=== PATIENT | female | born 1965 | race Hispanic/Latino ===

== ENCOUNTER 2017-07-01 12:50 | Inpatient (IN) | payer MEDICARE, OTHER ==
--- NOTE | 2017-07-01 13:18 | ED PDOC ---
Arrival/HPI - General Chief Complaint: Abnormal Skin Integrity Time Seen by Provider: 07/01/17 13:09 Historian: Patient - History of Present Illness Narrative History of Present Illness (Text): 07/01/17 13:18 A 52 year old female, whose past medical history includes diabetes, anxiety, morbid obesity, and cellulitis, presents to the emergency room complaining of cellulitis on the left leg. The patient states that she noticed it last night, but it worsened today. The patient states that a patch developed yesterday and she put Neosporin on it and took Benadryl because it was itchy. However, this morning she noticed it became worse which prompted her to come into the emergency room since she has had a history of cellulitis. The patient denies fevers, chills, headache, dizziness, sore throat, cough, chest pain, shortness of breath, dyspnea on exertion, abdominal pain, nausea, vomiting, diarrhea, neck /back pain, urinary/bowel changes or any other complaint. PMD: Dr. Austin Middleton Time/Duration: Other (Yesterday) Symptom Onset: Sudden Symptom Course: Unchanged Activities at Onset: Rest, Light Context: Home Past Medical History - Provider Review Nursing Documentation Reviewed: Yes - Infectious Disease Hx of Infectious Diseases: None - Tetanus Immunization Tetanus Immunization: Up to Date - Cardiac Hx Hypertension: Yes - Pulmonary Hx Asthma: Yes Hx Bronchitis: Yes Hx Emphysema: Yes - Endocrine/Metabolic Hx Diabetes Mellitus Type 2: Yes - Integumentary Other/Comment: Multiple cellulitis - Musculoskeletal/Rheumatological Hx Back Pain: Yes Hx Falls: Yes - Gastrointestinal Hx Gastrointestinal Disorders: (impaction, pyloric stenosis) Hx Gastroesophageal Reflux: Yes Hx Liver Failure: (fatty liver) Hx Pancreatitis: Yes - Genitourinary/Gynecological Hx Genitourinary Disorders: Yes (uterine mass) - Psychiatric Hx Anxiety: Yes Hx Substance Use: No - Surgical History Hx Appendectomy: Yes - Anesthesia Hx Anesthesia: Yes Hx Anesthesia Reactions: No Hx Malignant Hyperthermia: No - Suicidal Assessment Feels Threatened In Home Enviroment: No Family/Social History - Physician Review Nursing Documentation Reviewed: Yes Family/Social History: No Known Family HX Smoking Status: Never Smoked Hx Alcohol Use: No Hx Substance Use: No Hx Substance Use Treatment: No Allergies/Home Meds Allergies/Adverse Reactions: Allergies famotidine Allergy (Verified 07/01/17 15:43) ANAPHYLAXIS hydromorphone Allergy (Verified 07/01/17 15:43) ANAPHYLAXIS lidocaine Allergy (Verified 07/01/17 15:43) ANAPHYLAXIS omeprazole Allergy (Verified 07/01/17 15:43) ANAPHYLAXIS Sulfa (Sulfonamide Antibiotics) Allergy (Verified 07/01/17 15:43) RASH ketorolac tromethamine [From Toradol] Adverse Reaction (Verified 07/01/17 15:43) ANAPHYLAXIS morphine Adverse Reaction (Verified 07/01/17 15:43) ANAPHYLAXIS Home Medications: Home Meds Medication Instructions Recorded Confirmed Albuterol HFA [Ventolin HFA 90 2 puff IN TID PRN 01/13/17 07/01/17 mcg/actuation (8 g)] Ergocalciferol [Drisdol 50,000 1 cap PO MO 01/13/17 07/01/17 Intl Units Cap] Esomeprazole Magnesium [Nexium] 40 mg PO DAILY 01/13/17 07/01/17 Insulin Aspart, Recombinant 42 units SC TID 01/13/17 07/01/17 [Novolog] clonazePAM [Klonopin] 1 mg PO TID 01/13/17 07/01/17 diltiaZEM CD [Cardizem CD] 120 mg PO BID 01/13/17 07/01/17 Nystatin [Mycostatin Oint] 100,000 unit TP BID 01/14/17 07/01/17 Review of Systems - Physician Review All systems were reviewed & negative as marked: Yes - Review of Systems Constitutional: absent: Fevers, Night Sweats ENT: absent: Sore Throat Respiratory: absent: SOB, Cough Cardiovascular: absent: Chest Pain, AGARWAL Gastrointestinal: absent: Abdominal Pain, Diarrhea, Nausea, Vomiting Musculoskeletal: absent: Back Pain, Neck Pain Skin: Rash (Left Leg), Cellulitis (Left Leg) Neurological: absent: Headache, Dizziness Physical Exam Vital Signs Reviewed: Yes Vital Signs Temp Pulse Resp BP Pulse Ox 07/01/17 14:25 98.1 F 84 17 150/93 H 98 07/01/17 14:00 150/93 H 07/01/17 13:12 97.2 F L 102 H 18 97 Temperature: Hypothermic Blood Pressure: Normal Pulse: Tachycardic Respiratory Rate: Normal Appearance: Positive for: Well-Appearing, Non-Toxic, Comfortable Pain Distress: None Mental Status: Positive for: Alert and Oriented X 3 - Systems Exam Head: Present: Atraumatic, Normocephalic Pupils: Present: PERRL Extroacular Muscles: Present: EOMI Conjunctiva: Present: Normal Mouth: Present: Moist Mucous Membranes Neck: Present: Normal Range of Motion Respiratory/Chest: Present: Clear to Auscultation, Good Air Exchange. No: Respiratory Distress, Accessory Muscle Use Cardiovascular: Present: Regular Rate and Rhythm, Normal S1, S2. No: Murmurs Abdomen: No: Tenderness, Distention, Peritoneal Signs Back: Present: Normal Inspection Upper Extremity: Present: Normal Inspection. No: Cyanosis, Edema Lower Extremity: Present: Normal Inspection. No: Edema Neurological: Present: GCS=15, CN II-XII Intact, Speech Normal Skin: Present: Warm, Erythematous (left leg redness), Other (Non-blanching) Psychiatric: Present: Alert, Oriented x 3, Normal Insight, Normal Concentration Medical Decision Making ED Course and Treatment: 07/01/17 13:36 Impression: A 52 year old female presents to the emergency room complaining of an area of cellulitis to the left leg that developed yesterday. Plan: -- Blood Culture -- Labs -- Reassess and disposition Progress Notes: 07/01/17 15:12 On reevaluation of the leg, the redness already spread double the size since arrival. Patient states that last two times the same thing happened and she failed antibiotic treatment as an outpatient. She will need IV antibiotics and admission. Case discussed with Dr. Galindo, who is aware and agrees with plan. Suggests CT to rule out necrotizing fasciitis. Accepts pt into her service and she will f/u CT. 4:09pm - patient states she allergic to IV contrast. CT switched to non- contrast. Medicine resident aware and will f/u CT. - Lab Interpretations Lab Results: 07/01/17 14:20 07/01/17 14:20 Lab Results 07/01/17 14:24: POC Glucose (mg/dL) 207 H 07/01/17 14:20: Sodium 143, Chloride 104, Potassium 3.8, Carbon Dioxide 25, Anion Gap 17, BUN 15, Creatinine 0.6 L, Est GFR ( Amer) > 60, Est GFR ( Non-Af Amer) > 60, Random Glucose 205 H, Calcium 9.4, Phosphorus 3.8, Magnesium 1.9, Total Bilirubin 0.4, AST 28, ALT 36, Alkaline Phosphatase 62, Total Protein 7.5, Albumin 4.3, Globulin 3.1, Albumin/Globulin Ratio 1.4 07/01/17 14:20: pO2 45, VBG pH 7.36, VBG pCO2 48.0, VBG HCO3 27.1, VBG Total CO2 28.6 H, VBG O2 Sat (Calc) 87.2 H, VBG Base Excess 1.0, VBG Potassium 3.7, Sodium 140.0, Chloride 105.0, Glucose 216 H, Lactate 1.9, FiO2 21.0, Venous Blood Potassium 3.7 07/01/17 14:20: PT 10.8, INR 0.95, APTT 27.8 07/01/17 14:20: WBC 8.1, RBC 5.11, Hgb 14.8, Hct 43.6, MCV 85.3 D, MCH 29.0, MCHC 33.9, RDW 13.8, Plt Count 240, MPV 9.6, Gran % 74.7 H, Lymph % (Auto) 19.4 L, [place] % (Auto) 4.3, Eos % (Auto) 1.1 L, Baso % (Auto) 0.5, Gran # 6.01, Lymph # (Auto) 1.6, [place] # (Auto) 0.4, Eos # (Auto) 0.1, Baso # (Auto) 0.04 I have reviewed the lab results: Yes - Medication Orders Current Medication Orders: Acetaminophen (Tylenol 325mg Tab) 650 mg PO Q6H PRN PRN Reason: Fever >100.4 F Albuterol Sulfate (Albuterol 0.083% Inhal Solange (2.5 Mg/3 Ml) Ud) 2.5 mg IH [id number] PRN PRN Reason: Shortness of Breath Atorvastatin Calcium (Lipitor) 10 mg PO DAILY SILVIA Clonazepam (Klonopin) 1 mg PO TID SILVIA PRN Reason: Protocol Diltiazem HCl (Cardizem Cd) 120 mg PO BID SILVIA Ergocalciferol (Drisdol 50,000 Intl Units Cap) 1 cap PO MO SILVIA Furosemide (Lasix) 40 mg PO DAILY SILVIA Heparin Sodium (Porcine) (Heparin) 5,000 units SC Q8 SILVIA PRN Reason: Protocol Vancomycin HCl (Vancomycin 1gm) 1 gm in 250 mls @ 167 mls/hr IVPB STAT STA PRN Reason: Protocol Stop: 07/01/17 16:29 Vancomycin HCl (Vancomycin 1gm) 1 gm in 250 mls @ 167 mls/hr IVPB Q12H SILVIA PRN Reason: Protocol Piperacillin Sod/Tazobactam Sod (Zosyn 3.375 In Ns 100ml) 100 mls @ 200 mls/hr IVPB Q6 SILVIA PRN Reason: Protocol Stop: 07/02/17 00:29 Lisinopril (Zestril) 40 mg PO DAILY SILVIA Nystatin (Mycostatin Oint) gm TOP BID SILVIA Tizanidine HCl (Zanaflex) 2 mg PO AMHS SILVIA - Scribe Statement The provider has reviewed the documentation as recorded by the Scribe Vickie Larsen Provider Scribe Attestation: All medical record entries made by the Scribe were at my direction and personally dictated by me. I have reviewed the chart and agree that the record accurately reflects my personal performance of the history, physical exam, medical decision making, and the department course for this patient. I have also personally directed, reviewed, and agree with the discharge instructions and disposition. Disposition/Present on Arrival - Present on Arrival Any Indicators Present on Arrival: No History of DVT/PE: No History of Uncontrolled Diabetes: No Urinary Catheter: No History of Decub. Ulcer: No History Surgical Site Infection Following: None - Disposition Have Diagnosis and Disposition been Completed?: Yes Diagnosis: Cellulitis Disposition: HOSPITALIZED Disposition Time: 15:00 Patient Plan: Admission Condition: FAIR
[2017-07-01 14:42] LABS: VENOUS BLOOD GAS PO2 45 mm/Hg (30-55); VENOUS BLOOD PH 7.36 (7.32-7.43)
[2017-07-01 14:43] LABS: BASO # 0.04 K/mm3 (0.0-2.0); BASO % 0.5 % (0.0-3.0); EOS # 0.1 (0.0-0.7); EOS % 1.1 % (1.5-5.0); GRAN # 6.01 (1.4-6.5); GRAN % 74.7 % (50.0-68.0); HEMOGLOBIN 14.8 g/dL (12.0-16.0); LYMPH # 1.6 (1.2-3.4); LYMPH % 19.4 % (22.0-35.0); MEAN CELL VOLUME 85.3 fl (80.0-105.0); MEAN CORPUSCULAR HGB CONC 33.9 g/dl (31.0-37.0); MEAN PLATELET VOLUME 9.6 fl (7.0-11.0); MONO # 0.4 (0.1-0.6); MONO % 4.3 % (1.0-6.0); RBC 5.11 10^6/uL (3.5-6.1); RED CELL DISTRIBUTION WIDTH 13.8 % (11.5-14.5); WHITE BLOOD COUNT 8.1 10^3/ul (4.5-11.0)
[2017-07-01 14:49] LABS: INR 0.95 (0.93-1.08); PARTIAL THROMBOPLASTIN TIME 27.8 Seconds (25.1-36.5); PROTHROMBIN TIME 10.8 SECONDS (9.4-12.5)
[2017-07-01 14:54] LABS: ALB/GLOB RATIO 1.4 (1.1-1.8); ALBUMIN 4.3 g/dL (3.0-4.8); ALT/SGPT 36 U/L (7-56); AST/SGOT 28 U/L (14-36); BLOOD UREA NITROGEN 15 mg/dL (7-21); CALCIUM 9.4 mg/dL (8.4-10.5); GFR AFRICAN-AMERICAN > 60; GFR NON-AFRICAN AMERICAN > 60
[2017-07-01] MEDS ORDERED: Vancomycin 1gm in NS 250ml 1 GM/250 ML BAG IVPB STA (15:00)
[2017-07-01] MEDS: Vancomycin 1gm in NS 250ml 1 GM/250 ML BAG IVPB SCH (16:24)
--- NOTE | 2017-07-01 16:42 | CP.PCM.HP ---
<Noel Dougherty - Last Filed: 07/01/17 16:58> History of Present Illness - History of Present Illness History of Present Illness: IM H&P for Hospitalist Service CC: Leg rash, pruritis HPI: This is a 52 yo F with PMH of HTN, DMII, Asthma/emphysema, hx pyloric stenosis, morbity and anxiety who presents to [facility] with complaint of LLE rash above the ankle. Reports the rash first appeared yesterday, intensely pruitic, not alleviated by Neosporin or PO benadryl use. Reports presentation is dissimilar from prior 2 episodes of cellulitis, in which her foot swelled and the cellulitis travelled up the leg to her abdominal region. As per the ED , initial plan was to discharge pt on PO antibiotics, but on return examination , new lesion below the knee was noticed, overall size of rash/lesion doubled in size, and pt reported to ED that she had failed outpt abx on both prior incidences, so decision was made to admit the patient. She denies pain at the site, fevers, chills, nausea, emesis, diarrhea, dysuria, chest pain, shortness of breath. Of note, patient reports essentially bed bound for the last 5 days, only had a change of clothes today. Also of note, has a service animal with her , which has been allowed to be with her after admission in the past. The animal (a small dog) has white fur that appears dirty and poorly kept, and appears to have a diffuse rash along the posterior aspect of his body, easily appreciated through the dirty portion of the fur. Patient reports that her building maintenance mechanic told her that there was an outbreak of bedbugs in the building , but not in her apartment. All other ROS in 12-system review negative. PMH: as above PSH: stomach polypectomy, spine surgery, appendectomy Soc Hx: denies tobacco/alcohol/illicits/IVDA Fam Hx: unspecified cancer (father) PMD: Dr. Norton Present on Admission - Present on Admission Any Indicators Present on Admission: No History of DVT/PE: No History of Uncontrolled Diabetes: No Urinary Catheter: No Review of Systems - Review of Systems All systems: reviewed and no additional remarkable complaints except (as per HPI ) Past Patient History - Infectious Disease Hx of Infectious Diseases: None - Tetanus Immunizations Tetanus Immunization: Up to Date - Past Social History Smoking Status: Never Smoked - CARDIAC Hx Hypertension: Yes - PULMONARY Hx Asthma: Yes Hx Bronchitis: Yes Hx Emphysema: Yes - ENDOCRINE/METABOLIC Hx Diabetes Mellitus Type 2: Yes - INTEGUMENTARY Other/Comment: Multiple cellulitis - MUSCULOSKELETAL/RHEUMATOLOGICAL Hx Back Pain: Yes Hx Falls: Yes - GASTROINTESTINAL Hx Gastrointestinal Disorders: (impaction, pyloric stenosis) Hx Gastroesophageal Reflux: Yes Hx Liver Failure: (fatty liver) Hx Pancreatitis: Yes - GENITOURINARY/GYNECOLOGICAL Hx Genitourinary Disorders: Yes (uterine mass) - PSYCHIATRIC Hx Anxiety: Yes Hx Substance Use: No - SURGICAL HISTORY Hx Appendectomy: Yes - ANESTHESIA Hx Anesthesia: Yes Hx Anesthesia Reactions: No Hx Malignant Hyperthermia: No Meds Allergies/Adverse Reactions: Allergies Allergy/AdvReac Type Severity Reaction Status Date / Time famotidine Allergy ANAPHYLAXIS Verified 07/01/17 15:43 hydromorphone Allergy ANAPHYLAXIS Verified 07/01/17 15:43 lidocaine Allergy ANAPHYLAXIS Verified 07/01/17 15:43 omeprazole Allergy ANAPHYLAXIS Verified 07/01/17 15:43 Sulfa (Sulfonamide Allergy RASH Verified 07/01/17 15:43 Antibiotics) ketorolac tromethamine AdvReac ANAPHYLAXIS Verified 07/01/17 15:43 [From Toradol] morphine AdvReac ANAPHYLAXIS Verified 07/01/17 15:43 Physical Exam - Constitutional Appears: Non-toxic, No Acute Distress, Unkempt, Other (mordibly obese, severe trunkal obesity) - Head Exam Head Exam: ATRAUMATIC, NORMAL INSPECTION, NORMOCEPHALIC - Eye Exam Eye Exam: EOMI, Normal appearance. absent: Conjunctival injection, Scleral icterus Pupil Exam: absent: Irregular, Unequal - ENT Exam ENT Exam: Mucous Membranes Moist Additional comments: Bull-neck - Neck Exam Neck exam: Positive for: Normal Inspection - Respiratory Exam Respiratory Exam: Decreased Breath Sounds (mild-moderately decreased breath sounds, likely 2/2 body habitus), Clear to Auscultation Bilateral, NORMAL BREATHING PATTERN. absent: Accessory Muscle Use, Chest Wall Tenderness, Prolonged Expiratory Phase, Rales, Rhonchi, Wheezes - Cardiovascular Exam Cardiovascular Exam: REGULAR RHYTHM, RRR, +S1, +S2. absent: Bradycardia, Tachycardia, Irregular Rhythm, JVD, +S4 - GI/Abdominal Exam GI & Abdominal Exam: Normal Bowel Sounds, Soft. absent: Diminished Bowel Sounds , Distended, Firm, Guarding, Hyperactive Bowel Sounds, Hypoactive Bowel Sounds, Rigid, Tenderness - Extremities Exam Additional comments: -all extremities with severe focal obesity, enlarged extremities abruptly tapering down at wrists/ankles to normal sized hands/feet -non-pitting edema of bilateral LE -two discrete rashes on left leg: one immediately superior to ankle along medial aspect of leg, the other inferior to knee extending from medial to lateral aspect of leg -no fluctuance or abnormal warmth of either lesion, no palpable aspect of rash, no plaques or raised lesions appreciated - Neurological Exam Additional comments: awake and alert, moving all extremities spontaneously, following all commands appropriately - Psychiatric Exam Psychiatric exam: Normal Affect, Normal Mood - Skin Skin Exam: Dry, Intact, Normal Color (except as documented in extremities exam) , Warm Results - Vital Signs Recent Vital Signs: Last Vital Signs Temp 98.1 F 07/01/17 14:25 Pulse 84 07/01/17 14:25 Resp 17 07/01/17 14:25 BP 150/93 H 07/01/17 14:25 Pulse Ox 98 07/01/17 14:25 - Labs Result Diagrams: 07/01/17 14:20 07/01/17 14:20 Labs: Laboratory Results - last 24 hr 07/01/17 07/01/17 07/01/17 14:20 14:20 14:20 WBC 8.1 RBC 5.11 Hgb 14.8 Hct 43.6 MCV 85.3 D MCH 29.0 MCHC 33.9 RDW 13.8 Plt Count 240 MPV 9.6 Gran % 74.7 H Lymph % (Auto) 19.4 L [place] % (Auto) 4.3 Eos % (Auto) 1.1 L Baso % (Auto) 0.5 Gran # 6.01 Lymph # (Auto) 1.6 Bay # (Auto) 0.4 Eos # (Auto) 0.1 Baso # (Auto) 0.04 PT 10.8 INR 0.95 APTT 27.8 pO2 45 VBG pH 7.36 VBG pCO2 48.0 VBG HCO3 27.1 VBG Total CO2 28.6 H VBG O2 Sat (Calc) 87.2 H VBG Base Excess 1.0 VBG Potassium 3.7 Sodium 140.0 Chloride 105.0 Glucose 216 H Lactate 1.9 FiO2 21.0 Potassium Carbon Dioxide Anion Gap BUN Creatinine Est GFR ( Amer) Est GFR (Non-Af Amer) POC Glucose (mg/dL) Random Glucose Calcium Phosphorus Magnesium Total Bilirubin AST ALT Alkaline Phosphatase Total Protein Albumin Globulin Albumin/Globulin Ratio Venous Blood Potassium 3.7 07/01/17 07/01/17 14:20 14:24 WBC RBC Hgb Hct MCV MCH MCHC RDW Plt Count MPV Gran % Lymph % (Auto) Bay % (Auto) Eos % (Auto) Baso % (Auto) Gran # Lymph # (Auto) Bay # (Auto) Eos # (Auto) Baso # (Auto) PT INR APTT pO2 VBG pH VBG pCO2 VBG HCO3 VBG Total CO2 VBG O2 Sat (Calc) VBG Base Excess VBG Potassium Sodium 143 Chloride 104 Glucose Lactate FiO2 Potassium 3.8 Carbon Dioxide 25 Anion Gap 17 BUN 15 Creatinine 0.6 L Est GFR ( Amer) > 60 Est GFR (Non-Af Amer) > 60 POC Glucose (mg/dL) 207 H Random Glucose 205 H Calcium 9.4 Phosphorus 3.8 Magnesium 1.9 Total Bilirubin 0.4 AST 28 ALT 36 Alkaline Phosphatase 62 Total Protein 7.5 Albumin 4.3 Globulin 3.1 Albumin/Globulin Ratio 1.4 Venous Blood Potassium Assessment & Plan - Assessment and Plan (Free Text) Assessment: This is a 52 yo F with PMH of HTN, DMII, Asthma/emphysema, hx pyloric stenosis, morbity and anxiety who presents to [facility] with complaint of LLE rash above the ankle. Due to development of second lesion while in ED, so she was admitted, pending workup to rule out necrotizing cellulitis. Plan: 1) LLE rash -cellulitis vs eczema vs allergic rxn -no leukocytosis, afebrile, no pain at site like prior cellulitis presentation -CT LLE to rule out abscess or local destruction, LE duplex to rule out DVT, Heparin 5000u q8 SC for DVT ppx -procal ordered, pending -empiric coverage with vanc/zosyn, given prior cellulitis episodes and hx of DMII -ID consulted, appreciate all recs -If localized destructive process, especially at rash near ankle, can consider Podiatry consult -NS 100cc/hr -blood and wound cultures ordered, f/u -no morphine or dilaudid for pain control due to reported anaphylatic rxn to morphine/dilaudid/lidocaine 2) DM -Lispro-ISS high, fingersticks ACHS 3) Hx HTN -continue home Lisinopril, Lasix, Diltiazem 4) Chronic back pain -continue home zanaflex 5) anxiety -continue home klonopin -has service animal with her Dispo: Med/surg, pending ID eval and recs, pending LE CT to assess for localized destruction, pending culture results FEN: Heart-healthy consistent carb vegetarian, NS 100cc/hr Access: Peripheral IV Consults: ID Ppx: no protonix due to reported anaphylaxis on omeprazole, Heparin SC for DVT Patient seen, reviewed, and discussed with attending, Dr. Lora. Decision To Admit - Pt Status Changed To: Hospital Disposition Of: Inpatient Admission - Admit Certification Admit to Inpatient:: After my assessment, the patient will require hospitalization for at least two midnights. This is because of the severity of symptoms shown, intensity of services needed, and/or the medical risk in this patient being treated as an outpatient. - . Bed Request Type: Med/Surg <Nighat Lora - Last Filed: 07/02/17 07:25> Results - Vital Signs Recent Vital Signs: Last Vital Signs Temp 97.8 F 07/01/17 22:00 Pulse 80 07/01/17 22:00 Resp 20 07/01/17 22:00 BP 149/89 07/01/17 22:00 Pulse Ox 96 07/01/17 22:00 - Labs Result Diagrams: 07/01/17 14:20 07/01/17 14:20 Labs: Laboratory Results - last 24 hr 07/01/17 07/01/17 07/02/17 18:20 21:41 01:12 POC Glucose (mg/dL) 125 H 277 H 199 H Attending/Attestation - Attestation I have personally seen and examined this patient.: Yes I have fully participated in the care of the patient.: Yes I have reviewed all pertinent clinical information: Yes Notes (Text): 07/01/17 52 year old female with past medical history of hypertension, diabetes, anxiety and obesity who presents with LLE erythema/rash. She was started on antibiotics for possible cellulitis. CT LLE is ordered. ID evaluation is requested. Will follow up on cultures. Continue with home medications for hypertension and diabetes. Nighat Lora MD Hospitalist.
[2017-07-01] MEDS: Piperacillin/Tazobact 3.375 gm 100 ML IVPB SCH ×2 (17:56→23:59)
[2017-07-01] MEDS: diltiaZEM 120 mg/24 Hours CD Cap PO SCH (17:57)
[2017-07-01] MEDS: Nystatin 100,000 Units/gm Oint(30 gm) TOP SCH ×2 (17:57→20:16)
[2017-07-01] MEDS ORDERED: Sodium Chloride 0.9% 1,000 ML IV SCH (18:00)
[2017-07-01 18:23] VITALS: BMI 58.4
[2017-07-01] MEDS ORDERED: Pneumococcal 23-Valent Vaccine IM ONE (18:23)
[2017-07-01] MEDS ORDERED: DiphenhydrAMINE 12.5 mg/5 ml LIQ UD (5 ml) PO STA (19:50)
[2017-07-01] MEDS ORDERED: Morphine 4 mg/ml ISec IVP PRN (21:20)
[2017-07-01] MEDS: Oxycodone/Acetaminophen 5/325 mg Tab PO PRN (22:06)
[2017-07-02] MEDS ORDERED: DiphenhydrAMINE 12.5 mg/5 ml LIQ UD (5 ml) PO STA (02:51)
[2017-07-02] MEDS: Vancomycin 1gm in NS 250ml 1 GM/250 ML BAG IVPB SCH (03:10)
[2017-07-02] MEDS: Oxycodone/Acetaminophen 5/325 mg Tab PO PRN ×3 (05:49→23:14)
[2017-07-02 06:25] VITALS: RESP 20
[2017-07-02 07:48] LABS: BASO # 0.03 K/mm3 (0.0-2.0); BASO % 0.5 % (0.0-3.0); EOS # 0.2 (0.0-0.7); EOS % 3.1 % (1.5-5.0); GRAN # 3.31 (1.4-6.5); GRAN % 54.3 % (50.0-68.0); HEMOGLOBIN 12.9 g/dL (12.0-16.0); LYMPH # 2.1 (1.2-3.4); LYMPH % 34.5 % (22.0-35.0); MEAN CORPUSCULAR HEMOGLOBIN 28.4 pg (25.0-35.0); MEAN CORPUSCULAR HGB CONC 32.7 g/dl (31.0-37.0); MONO # 0.5 (0.1-0.6); MONO % 7.6 % (1.0-6.0); RBC 4.54 10^6/uL (3.5-6.1); WHITE BLOOD COUNT 6.1 10^3/ul (4.5-11.0)
[2017-07-02 07:56] LABS: ALB/GLOB RATIO 1.3 (1.1-1.8); ALBUMIN 3.6 g/dL (3.0-4.8); ALT/SGPT 32 U/L (7-56); AST/SGOT 23 U/L (14-36); BLOOD UREA NITROGEN 16 mg/dL (7-21); CALCIUM 8.8 mg/dL (8.4-10.5); GFR AFRICAN-AMERICAN > 60; GFR NON-AFRICAN AMERICAN > 60
[2017-07-02] MEDS: diltiaZEM 120 mg/24 Hours CD Cap PO SCH ×2 (09:25→17:06)
[2017-07-02] MEDS: Nystatin 100,000 Units/gm Oint(30 gm) TOP SCH ×2 (09:33→17:08)
--- NOTE | 2017-07-02 10:19 | CT ---
PROCEDURE: CT scan of the left lower extremity without contrast HISTORY: left leg cellulitis r/o necrotizing fascitis COMPARISON: No prior studies. TECHNIQUE: Contiguous axial images of the left hip were obtained. Coronal and sagittal reformats were generated. This CT exam was performed using one or more of the following dose reduction techniques: Automated exposure control, adjustment of the mA and/or kV according to patient size, and/or use of iterative reconstruction technique. FINDINGS: BONES: Unremarkable. No fracture or focal lesion. Visualized femur, tibia, and fibula show no evidence of lytic process or periosteal reaction. Moderate degenerative changes are seen in the left knee. LEFT HIP JOINT: Left hip was not imaged. Left knee was image with degenerative change and small joint effusion. SOFT TISSUES: No appreciable collection is noted in the left lower leg to suggest abscess. Mild induration of the subcutaneous soft tissues and scan are noted suggesting some mild cellulitis. Muscles show no evidence of focal fluid collection. Lack of contrast limits evaluation for myositis. IMPRESSION: No focal fluid collection is noted in the lower extremity to suggest abscess. Mild nonspecific skin thickening and induration of the subcutaneous soft tissues may suggest mild cellulitis. Further clinical follow-up is strongly suggested.
[2017-07-02] MEDS: Insulin Lispro (humaLOG) MEDIUM Coverage SC SCH ×3 (11:35→22:24)
--- NOTE | 2017-07-02 14:23 | CP.PCM.PN ---
<Noel Dougherty - Last Filed: 07/02/17 18:01> Subjective - Date & Time of Evaluation Date of Evaluation: 07/02/17 Time of Evaluation: 08:00 - Subjective Subjective: IM Progress Note for Hospitalist Service Patient seen and examined at bedside. No acute events overnight, but patient complained because she wanted medications for pain, but due to reported hx of anaphylactic rxn with morphine and dilaudid, there was concern over using opioids, however pt refused any NSAIDs as now reporting "always start bleeding in my stomach" when given any doses of NSAID. Reports on Oxycodone at home without any allergic rxns, so started on percocet. Also complaining of GERD and wanting her home Nexium, but informed Nexium not on formulary and again concerned over starting on PPI or Pepcid given reported hx of anaphylaxis with pepcid and omeprazole. Patient denies any hx of anaphylactic rxns to these medications, reports becoming depressed on them. She also reports being on protonix (on formulary) in the past without issue, so she was started on Protonix. Denies chest pain, nausea, emesis, shortness of breath, fever, but does report extension of both cellulitic areas. On exam, areas appear mildly increased in area as compared to yesterday. Later today, nursing reported patient complaining and being disruptive on the floor due to wanting sugar-free ice cream and not being given it by the kitchen due to consistent carb diet. Patient continued to express disruptive and combative behavior throughout the day, including hiding her AM dose of Klonopin , screaming in the halls, and demanding to be washed then refusing when the BUSINESS OFFICE MANAGER was available (please see Nursing notes for 07/02/17 for further details). She also twice refused her bilateral LE duplex to rule out DVT, once due to complaints of GERD, which is nonsensical. Given this behavior, psych was consulted. Objective - Vital Signs/Intake and Output Vital Signs (last 24 hours): Temp Pulse Resp BP Pulse Ox 97.8 F 80 20 147/99 H 96 07/01/17 22:00 07/01/17 22:00 07/01/17 22:00 07/02/17 09:31 07/01/17 22:00 Intake and Output: 07/02/17 07/02/17 06:59 18:59 Intake Total 1860 Balance 1860 - Medications Medications: Current Medications Acetaminophen (Tylenol 325mg Tab) 650 mg PO Q6H PRN PRN Reason: Fever >100.4 F Albuterol Sulfate (Albuterol 0.083% Inhal Solange (2.5 Mg/3 Ml) Ud) 2.5 mg IH [id number] PRN PRN Reason: Shortness of Breath Atorvastatin Calcium (Lipitor) 10 mg PO DAILY [facility] Last Admin: 07/02/17 09:25 Dose: 10 mg Clonazepam (Klonopin) 1 mg PO TID [facility]IL[facility]IA PRN Reason: Protocol Last Admin: 07/02/17 14:08 Dose: Not Given Diltiazem HCl (Cardizem Cd) 120 mg PO BID [facility] Last Admin: 07/02/17 09:25 Dose: 120 mg Ergocalciferol (Drisdol 50,000 Intl Units Cap) 1 cap PO MO [facility] Furosemide (Lasix) 40 mg PO DAILY [facility] Last Admin: 07/02/17 09:31 Dose: 40 mg Heparin Sodium (Porcine) (Heparin) 5,000 units SC Q8 [facility] PRN Reason: Protocol Last Admin: 07/02/17 05:57 Dose: Not Given Sodium Chloride (Sodium Chloride 0.9%) 1,000 mls @ 100 mls/hr IV .Q10H [facility] Ceftaroline Fosamil 400 mg/ (Sodium Chloride) 100 mls @ 100 mls/hr IVPB Q12 [facility] PRN Reason: Protocol Stop: 07/09/17 13:46 Insulin Human Lispro (Humalog Med) 0 units SC ACHS [facility] PRN Reason: Protocol Last Admin: 07/02/17 11:35 Dose: 3 units Lisinopril (Zestril) 40 mg PO DAILY [facility] Last Admin: 07/02/17 09:33 Dose: 40 mg Nystatin (Mycostatin Oint) 0 gm TOP BID [facility] Last Admin: 07/02/17 09:33 Dose: 1 appl Oxycodone/Acetaminophen (Percocet 5/325 Mg Tab) 1 tab PO Q4H PRN PRN Reason: Pain, moderate (4-7) Stop: 07/05/17 09:05 Pantoprazole Sodium (Protonix Inj) 40 mg IVP Q12 [facility] Tizanidine HCl (Zanaflex) 2 mg PO AMHS [facility] Last Admin: 07/02/17 09:41 Dose: Not Given - Labs Labs: 07/02/17 07:00 07/02/17 07:00 PT 10.8 SECONDS (9.4-12.5) 07/01/17 14:20 INR 0.95 (0.93-1.08) 07/01/17 14:20 APTT 27.8 Seconds (25.1-36.5) 07/01/17 14:20 - Additional Findings Additional findings: - Constitutional Appears: Non-toxic, No Acute Distress, Unkempt, Other (mordibly obese, severe trunkal obesity) - Head Exam Head Exam: ATRAUMATIC, NORMAL INSPECTION, NORMOCEPHALIC - Eye Exam Eye Exam: EOMI, Normal appearance. absent: Conjunctival injection, Scleral icterus Pupil Exam: absent: Irregular, Unequal - ENT Exam ENT Exam: Mucous Membranes Moist, Bull-neck - Neck Exam Neck exam: Positive for: Normal Inspection - Respiratory Exam Respiratory Exam: Decreased Breath Sounds (mild-moderately decreased breath sounds, likely 2/2 body habitus), Clear to Auscultation Bilateral, NORMAL BREATHING PATTERN. absent: Accessory Muscle Use, Chest Wall Tenderness, Prolonged Expiratory Phase, Rales, Rhonchi, Wheezes - Cardiovascular Exam Cardiovascular Exam: REGULAR RHYTHM, RRR, +S1, +S2. absent: Bradycardia, Tachycardia, Irregular Rhythm, JVD, +S4 - GI/Abdominal Exam GI & Abdominal Exam: Normal Bowel Sounds, Soft. absent: Diminished Bowel Sounds , Distended, Firm, Guarding, Hyperactive Bowel Sounds, Hypoactive Bowel Sounds, Rigid, Tenderness - Extremities Exam -all extremities with severe focal obesity, enlarged extremities abruptly tapering down at wrists/ankles to normal sized hands/feet -non-pitting edema of bilateral LE -two discrete rashes on left leg: one immediately superior to ankle along medial aspect of leg, the other inferior to knee extending from medial to lateral aspect of leg; mild extension from areas visualized yesterday, still not expressing any discharge/pus/bleeding -no fluctuance or abnormal warmth of either lesion, no palpable aspect of rash, no plaques or raised lesions appreciated - Neurological Exam awake and alert, moving all extremities spontaneously, following all commands appropriately - Psychiatric Exam Psychiatric exam: Bizarre behavior (please see subjective for additional details ), complaining of prior staff and praising/flattering currently present staff, then complaining about current staff to new staff, intermittently combative/ aggressive, hiding medications at one point - Skin Skin Exam: Dry, Intact, Normal Color (except as documented in extremities exam) , Warm Assessment and Plan - Assessment and Plan (Free Text) Assessment: This is a 52 yo F with PMH of HTN, DMII, Asthma/emphysema, hx pyloric stenosis, morbity and anxiety who presents to [facility] with complaint of LLE rash above the ankle. Admitted for cellulitis, will need IV abx pending speciation and sensitivities. Plan: 1) LLE celluitis -CT findings consistent with cellutilis but no signs of abscesses needing drainage or any necrotizing signs -still no leukocytosis, remains afebrile, no pain at site like prior cellulitis presentation but reported pain overnight, site is pruritic -pt refusing LE duplex to rule out DVT due to bizzare behavior, continue Heparin SC for DVT ppx -procal negative -ID consulted, appreciate all recs; started on teflaro and antifungal cream, if no improvement then may require skin scrapings for ARIK prep -NS 100cc/hr -blood and wound cultures negative at 24 hours, continue to monitor -no morphine or dilaudid for pain control due to reported anaphylatic rxn to morphine/dilaudid/lidocaine, reports home oxycodone use so started on percocet for pain prn 2) Aggressive and Bizarre behavior -fluctuates between flattering and complaining, aggressive and inappropriate behavior in front of staff and other patients -borderline personality disorder? -Psych consulted, appreciate all recs 3) DM -Lispro-ISS Med, fingersticks ACHS 4) Hx HTN -continue home Lisinopril, Lasix, Diltiazem 5) Chronic back pain -continue home zanaflex 6) anxiety -continue home klonopin; if attempts to hide again and is non-compliant with taking, will d/c -has service animal with her 7) GERD -reports NO anaphylaxis on omeprazole or pepcid, started on IV protonix 40mg BID , will transition back to oral tomorrow Dispo: Med/surg, on IV teflaro for cellulitis, pending Psych eval for abnormal/ bizarre behavior FEN: Heart-healthy consistent carb vegetarian, NS 100cc/hr Access: Peripheral IV Consults: ID, Psych Ppx: protonix for GI, Heparin SC for DVT Patient seen, reviewed, and discussed with attending, Dr. Lora. <Nighat Lora - Last Filed: 07/02/17 18:46> Objective - Vital Signs/Intake and Output Vital Signs (last 24 hours): Temp Pulse Resp BP Pulse Ox 97.9 F 90 20 137/72 96 07/02/17 14:00 07/02/17 14:00 07/02/17 14:00 07/02/17 14:00 07/02/17 14:00 Intake and Output: 07/02/17 07/02/17 06:59 18:59 Intake Total 1860 480 Balance 1860 480 - Medications Medications: Current Medications Acetaminophen (Tylenol 325mg Tab) 650 mg PO Q6H PRN PRN Reason: Fever >100.4 F Albuterol Sulfate (Albuterol 0.083% Inhal Solange (2.5 Mg/3 Ml) Ud) 2.5 mg IH [id number] PRN PRN Reason: Shortness of Breath Atorvastatin Calcium (Lipitor) 10 mg PO DAILY [facility] Last Admin: 07/02/17 09:25 Dose: 10 mg Clonazepam (Klonopin) 1 mg PO TID [facility] PRN Reason: Protocol Last Admin: 07/02/17 16:18 Dose: 1 mg Diltiazem HCl (Cardizem Cd) 120 mg PO BID [facility] Last Admin: 07/02/17 17:06 Dose: 120 mg Ergocalciferol (Drisdol 50,000 Intl Units Cap) 1 cap PO MO [facility] Furosemide (Lasix) 40 mg PO DAILY [facility] Last Admin: 07/02/17 09:31 Dose: 40 mg Heparin Sodium (Porcine) (Heparin) 5,000 units SC Q8 [facility] PRN Reason: Protocol Last Admin: 07/02/17 14:42 Dose: 5,000 units Sodium Chloride (Sodium Chloride 0.9%) 1,000 mls @ 100 mls/hr IV .Q10H [facility] Last Admin: 07/02/17 14:42 Dose: 100 mls/hr Ceftaroline Fosamil 400 mg/ (Sodium Chloride) 100 mls @ 100 mls/hr IVPB Q12 [facility] PRN Reason: Protocol Stop: 07/09/17 13:46 Last Admin: 07/02/17 14:56 Dose: 100 mls/hr Insulin Human Lispro (Humalog Med) 0 units SC ACHS [facility] PRN Reason: Protocol Last Admin: 07/02/17 17:06 Dose: 1 units Lisinopril (Zestril) 40 mg PO DAILY [facility] Last Admin: 07/02/17 09:33 Dose: 40 mg Nystatin (Mycostatin Oint) 0 gm TOP BID [facility] Last Admin: 07/02/17 17:08 Dose: 1 appl Oxycodone/Acetaminophen (Percocet 5/325 Mg Tab) 1 tab PO Q4H PRN PRN Reason: Pain, moderate (4-7) Stop: 07/05/17 09:05 Last Admin: 07/02/17 15:16 Dose: 1 tab Pantoprazole Sodium (Protonix Inj) 40 mg IVP Q12 [facility] Tizanidine HCl (Zanaflex) 2 mg PO AMHS [facility] Last Admin: 07/02/17 09:41 Dose: Not Given - Labs Labs: 07/02/17 07:00 07/02/17 07:00 PT 10.8 SECONDS (9.4-12.5) 07/01/17 14:20 INR 0.95 (0.93-1.08) 07/01/17 14:20 APTT 27.8 Seconds (25.1-36.5) 07/01/17 14:20 Attending/Attestation - Attestation I have personally seen and examined this patient.: Yes I have fully participated in the care of the patient.: Yes I have reviewed all pertinent clinical information, including history, physical exam and plan: Yes Notes (Text): 07/02/17 18:44 52 year old female with past medical history of hypertension, diabetes, anxiety and obesity who presents with LLE erythema/rash. CT LLE was reviewed. Continue with iv antibiotics. ID evaluation was appreciated. LE dopplers pending. Nursing notes were reviewed and behavioral issues discussed with staff; psychiatry evaluation is requested. Continue with home medications for hypertension and diabetes. Nighat Lora MD Hospitalist.
--- NOTE | 2017-07-02 14:47 | CP.PCM.CON ---
History of Present Illness - History of Present Illness History of Present Illness: 52 year old female with PMH of COPD, history of pyloric stenosis, GERD, morbid obesity with BMI 58, fatty liver, chronic back pain, history of uterine mass, S/ P appendectomy, history of leg cellulitis came in to [facility] complaining of pain and swelling of her left leg, associated with a pruritic rash on the anterior surface. She states that it appeared about 1-2 days ago and it is very itchy. She states that her do accidently "stepped on" the lesions. She denies soaking her feet in water, no walking barefoot on soil. She denies fever or chills, no nausea or vomiting, no headache or dizziness, no chest pain, no SOB, no sore throat, no cough or colds, no abdominal pain, no diarrhea, no dysuria. Infectious diseases consult is requested to further evaluate and manage. Review of Systems - Review of Systems All systems: reviewed and no additional remarkable complaints except (as per HPI ) Past Patient History - Infectious Disease Hx of Infectious Diseases: None - Tetanus Immunizations Tetanus Immunization: Up to Date - Past Social History Smoking Status: Never Smoked - CARDIAC Hx Cardiac Disorders: Yes Hx Hypertension: Yes Hx Peripheral Edema: Yes - PULMONARY Hx Respiratory Disorders: Yes Hx Asthma: Yes Hx Bronchitis: Yes Hx Emphysema: Yes - NEUROLOGICAL Hx Neurological Disorder: No - HEENT Hx HEENT Problems: No - ENDOCRINE/METABOLIC Hx Endocrine Disorders: Yes Hx Diabetes Mellitus Type 2: Yes - HEMATOLOGICAL/ONCOLOGICAL Hx Blood Disorders: No - INTEGUMENTARY Hx Dermatological Problems: Yes Other/Comment: Multiple cellulitis - MUSCULOSKELETAL/RHEUMATOLOGICAL Hx Musculoskeletal Disorders: Yes Hx Back Pain: Yes Hx Falls: Yes Hx Unsteady Gait: Yes (CANE) - GASTROINTESTINAL Hx Gastrointestinal Disorders: (impaction, pyloric stenosis) Hx Gastroesophageal Reflux: Yes Hx Liver Failure: (fatty liver) Hx Pancreatitis: Yes - GENITOURINARY/GYNECOLOGICAL Hx Genitourinary Disorders: Yes (uterine mass) - PSYCHIATRIC Hx Psychophysiologic Disorder: Yes Hx Anxiety: Yes Hx Substance Use: No - SURGICAL HISTORY Hx Surgeries: Yes Hx Appendectomy: Yes - ANESTHESIA Hx Anesthesia: Yes Hx Anesthesia Reactions: No Hx Malignant Hyperthermia: No Meds Allergies/Adverse Reactions: Allergies Allergy/AdvReac Type Severity Reaction Status Date / Time hydromorphone Allergy ANAPHYLAXIS Verified 07/01/17 15:43 lidocaine Allergy ANAPHYLAXIS Verified 07/01/17 15:43 Sulfa (Sulfonamide Allergy RASH Verified 07/01/17 15:43 Antibiotics) famotidine AdvReac HEADACHE Verified 07/02/17 13:31 ketorolac tromethamine AdvReac ANAPHYLAXIS Verified 07/01/17 15:43 [From Toradol] morphine AdvReac ANAPHYLAXIS Verified 07/01/17 15:43 omeprazole AdvReac HEADACHE Verified 07/02/17 13:31 - Medications Medications: Current Medications Acetaminophen (Tylenol 325mg Tab) 650 mg PO Q6H PRN PRN Reason: Fever >100.4 F Albuterol Sulfate (Albuterol 0.083% Inhal Solange (2.5 Mg/3 Ml) Ud) 2.5 mg IH [id number] PRN PRN Reason: Shortness of Breath Atorvastatin Calcium (Lipitor) 10 mg PO DAILY [facility] Clonazepam (Klonopin) 1 mg PO TID [facility] PRN Reason: Protocol Last Admin: 07/01/17 17:57 Dose: 1 mg Diltiazem HCl (Cardizem Cd) 120 mg PO BID [facility] Last Admin: 07/01/17 17:57 Dose: 120 mg Ergocalciferol (Drisdol 50,000 Intl Units Cap) 1 cap PO MO [facility] Furosemide (Lasix) 40 mg PO DAILY [facility] Heparin Sodium (Porcine) (Heparin) 5,000 units SC Q8 [facility] PRN Reason: Protocol Last Admin: 07/02/17 05:57 Dose: Not Given Vancomycin HCl (Vancomycin 1gm) 1 gm in 250 mls @ 167 mls/hr IVPB Q12H [facility] PRN Reason: Protocol Last Admin: 07/02/17 03:10 Dose: 167 mls/hr Sodium Chloride (Sodium Chloride 0.9%) 1,000 mls @ 100 mls/hr IV .Q10H [facility] Lisinopril (Zestril) 40 mg PO DAILY [facility] Nystatin (Mycostatin Oint) 0 gm TOP BID [facility] Last Admin: 07/01/17 20:16 Dose: 1 appl Tizanidine HCl (Zanaflex) 2 mg PO AMHS [facility] Last Admin: 07/01/17 22:08 Dose: 2 mg Physical Exam - Constitutional Appears: Non-toxic, No Acute Distress - Head Exam Head Exam: NORMAL INSPECTION - ENT Exam ENT Exam: Mucous Membranes Moist - Neck Exam Neck exam: Negative for: Meningismus - Respiratory Exam Respiratory Exam: Decreased Breath Sounds - Cardiovascular Exam Cardiovascular Exam: +S1, +S2 - GI/Abdominal Exam GI & Abdominal Exam: Soft. absent: Tenderness - Extremities Exam Additional comments: left leg with swelling and erythema noted, as well as discolored patch on the anterior part of the leg Results - Vital Signs Recent Vital Signs: Last Vital Signs Temp 97.8 F 07/01/17 22:00 Pulse 80 07/01/17 22:00 Resp 20 07/01/17 22:00 BP 149/89 07/01/17 22:00 Pulse Ox 96 07/01/17 22:00 - Labs Result Diagrams: 07/02/17 07:00 07/02/17 07:00 Labs: Laboratory Results - last 24 hr 07/01/17 07/01/17 07/02/17 18:20 21:41 01:12 WBC RBC Hgb Hct MCV MCH MCHC RDW Plt Count MPV Gran % Lymph % (Auto) [place] % (Auto) Eos % (Auto) Baso % (Auto) Gran # Lymph # (Auto) [place] # (Auto) Eos # (Auto) Baso # (Auto) Sodium Potassium Chloride Carbon Dioxide Anion Gap BUN Creatinine Est GFR ( Amer) Est GFR (Non-Af Amer) POC Glucose (mg/dL) 125 H 277 H 199 H Random Glucose Calcium Phosphorus Magnesium Total Bilirubin AST ALT Alkaline Phosphatase Total Protein Albumin Globulin Albumin/Globulin Ratio 07/02/17 07/02/17 07/02/17 07:00 07:00 08:16 WBC 6.1 D RBC 4.54 Hgb 12.9 Hct 39.5 MCV 87.0 MCH 28.4 MCHC 32.7 RDW 14.0 Plt Count 191 MPV 10.0 Gran % 54.3 Lymph % (Auto) 34.5 [place] % (Auto) 7.6 H Eos % (Auto) 3.1 Baso % (Auto) 0.5 Gran # 3.31 Lymph # (Auto) 2.1 [place] # (Auto) 0.5 Eos # (Auto) 0.2 Baso # (Auto) 0.03 Sodium 141 Potassium 3.6 Chloride 107 Carbon Dioxide 23 Anion Gap 14 BUN 16 Creatinine 0.6 L Est GFR ( Amer) > 60 Est GFR (Non-Af Amer) > 60 POC Glucose (mg/dL) 166 H Random Glucose 184 H Calcium 8.8 Phosphorus 4.5 Magnesium 1.9 Total Bilirubin 0.5 AST 23 ALT 32 Alkaline Phosphatase 53 Total Protein 6.3 Albumin 3.6 Globulin 2.7 Albumin/Globulin Ratio 1.3 Assessment & Plan - Assessment and Plan (Free Text) Plan: Assessment Consider left lower extremity cellulitis on top of venous stasis probably related to obesity, R/O fungal infection COPD history of pyloric stenosis GERD morbid obesity with BMI 58 fatty liver chronic back pain history of uterine mass S/P appendectomy HTN dyslipidemia Plan started patient on Teflaro and also on antifungal cream and will follow up blood cx; if no improvement, may need skin scrapings for ARIK prep will monitor clinically
[2017-07-02] MEDS ORDERED: Pantoprazole 40 mg EC Tab PO SCH (16:00)
[2017-07-03] MEDS: Insulin Lispro (humaLOG) MEDIUM Coverage SC SCH ×2 (08:06→11:26)
[2017-07-03 08:57] LABS: BASO # 0.05 K/mm3 (0.0-2.0); BASO % 0.8 % (0.0-3.0); EOS # 0.3 (0.0-0.7); EOS % 5.4 % (1.5-5.0); GRAN # 3.35 (1.4-6.5); GRAN % 56.7 % (50.0-68.0); HEMOGLOBIN 13.8 g/dL (12.0-16.0); LYMPH # 1.8 (1.2-3.4); MEAN CELL VOLUME 86.5 fl (80.0-105.0); MEAN CORPUSCULAR HEMOGLOBIN 29.1 pg (25.0-35.0); MEAN CORPUSCULAR HGB CONC 33.7 g/dl (31.0-37.0); MEAN PLATELET VOLUME 9.9 fl (7.0-11.0); MONO # 0.4 (0.1-0.6); MONO % 6.1 % (1.0-6.0); RBC 4.74 10^6/uL (3.5-6.1); RED CELL DISTRIBUTION WIDTH 13.9 % (11.5-14.5); WHITE BLOOD COUNT 5.9 10^3/ul (4.5-11.0)
[2017-07-03] MEDS: diltiaZEM 120 mg/24 Hours CD Cap PO SCH ×2 (10:25→18:31)
[2017-07-03] MEDS: Oxycodone/Acetaminophen 5/325 mg Tab PO PRN ×2 (10:25→20:35)
[2017-07-03] MEDS: Nystatin 100,000 Units/gm Oint(30 gm) TOP SCH ×2 (10:27→18:40)
[2017-07-03 10:32] LABS: ALB/GLOB RATIO 1.3 (1.1-1.8); ALBUMIN 3.6 g/dL (3.0-4.8); ALT/SGPT 30 U/L (7-56); AST/SGOT 24 U/L (14-36); BLOOD UREA NITROGEN 19 mg/dL (7-21); CALCIUM 8.7 mg/dL (8.4-10.5); GFR AFRICAN-AMERICAN > 60; GFR NON-AFRICAN AMERICAN > 60
[2017-07-03] MEDS ORDERED: Benzocaine/Menthol (Cepacol) Lozenge MT PRN (10:50)
--- NOTE | 2017-07-03 14:23 | CP.PCM.PN ---
<Lisa Schneider - Last Filed: 07/03/17 14:43> Subjective - Date & Time of Evaluation Date of Evaluation: 07/03/17 Time of Evaluation: 14:22 - Subjective Subjective: Internal Medicine Progress Note: Patient seen and examined at bedside. Per nursing no acute events overnight. Patient states that she is still having pain and occasional itching of left lower extremity. Also reports having sore throat/cough. Denies fevers, chills, headaches, dizziness, cp, palpitations, sob, abdominal pain, urinary symptoms. Objective - Vital Signs/Intake and Output Vital Signs (last 24 hours): Temp Pulse Resp BP Pulse Ox 97.9 F 90 20 116/62 96 07/02/17 14:00 07/02/17 14:00 07/02/17 14:00 07/03/17 10:25 07/02/17 14:00 Intake and Output: 07/03/17 07/03/17 06:59 18:59 Intake Total 720 180 Balance 720 180 - Medications Medications: Current Medications Acetaminophen (Tylenol 325mg Tab) 650 mg PO Q6H PRN PRN Reason: Fever >100.4 F Albuterol Sulfate (Albuterol 0.083% Inhal Solange (2.5 Mg/3 Ml) Ud) 2.5 mg IH Q5TTRON PRN PRN Reason: Shortness of Breath Atorvastatin Calcium (Lipitor) 10 mg PO HS [facility] Benzocaine/Menthol (Cepacol Sore Throat) 1 peng MT Q2H PRN PRN Reason: Sore Throat Benzonatate (Tessalon Perles) 100 mg PO TID PRN PRN Reason: Cough Clonazepam (Klonopin) 1 mg PO TID [facility] PRN Reason: Protocol Last Admin: 07/03/17 14:18 Dose: Not Given Diltiazem HCl (Cardizem Cd) 120 mg PO BID [facility] Last Admin: 07/03/17 10:25 Dose: 120 mg Ergocalciferol (Drisdol 50,000 Intl Units Cap) 1 cap PO MO [facility] Furosemide (Lasix) 40 mg PO DAILY [facility] Last Admin: 07/03/17 10:25 Dose: 40 mg Heparin Sodium (Porcine) (Heparin) 5,000 units SC Q8 [facility] PRN Reason: Protocol Last Admin: 07/03/17 06:26 Dose: Not Given Ceftaroline Fosamil 600 mg/ (Sodium Chloride) 100 mls @ 100 mls/hr IVPB 0300, 1500 [facility] PRN Reason: Protocol Insulin Human Lispro (Humalog Med) 0 units SC ACHS [facility] PRN Reason: Protocol Last Admin: 07/03/17 11:26 Dose: 5 units Losartan Potassium (Cozaar) 50 mg PO DAILY [facility] Nystatin (Mycostatin Oint) 0 gm TOP BID [facility] Last Admin: 07/03/17 10:27 Dose: 1 appl Oxycodone/Acetaminophen (Percocet 5/325 Mg Tab) 1 tab PO Q4H PRN PRN Reason: Pain, moderate (4-7) Stop: 07/05/17 09:05 Last Admin: 07/03/17 10:25 Dose: 1 tab Pantoprazole Sodium (Protonix Ec Tab) 40 mg PO Q12H [facility] - Labs Labs: 07/03/17 08:40 07/03/17 10:00 PT 10.8 SECONDS (9.4-12.5) 07/01/17 14:20 INR 0.95 (0.93-1.08) 07/01/17 14:20 APTT 27.8 Seconds (25.1-36.5) 07/01/17 14:20 - Additional Findings Additional findings: - Constitutional Appears: Non-toxic, No Acute Distress, Unkempt, Other (mordibly obese, severe trunkal obesity) - Head Exam Head Exam: ATRAUMATIC, NORMAL INSPECTION, NORMOCEPHALIC - Eye Exam Eye Exam: EOMI, Normal appearance. absent: Conjunctival injection, Scleral icterus Pupil Exam: absent: Irregular, Unequal - ENT Exam ENT Exam: Mucous Membranes Moist, Bull-neck - Neck Exam Neck exam: Positive for: Normal Inspection - Respiratory Exam Respiratory Exam: Decreased Breath Sounds, Clear to Auscultation Bilateral, NORMAL BREATHING PATTERN. absent: Accessory Muscle Use, Chest Wall Tenderness, Prolonged Expiratory Phase, Rales, Rhonchi, Wheezes - Cardiovascular Exam Cardiovascular Exam: REGULAR RHYTHM, RRR, +S1, +S2. absent: Bradycardia, Tachycardia, Irregular Rhythm, JVD, +S4 - GI/Abdominal Exam GI & Abdominal Exam: Normal Bowel Sounds, Soft. absent: Diminished Bowel Sounds , Distended, Firm, Guarding, Hyperactive Bowel Sounds, Hypoactive Bowel Sounds, Rigid, Tenderness - Extremities Exam -all extremities with severe focal obesity, enlarged extremities abruptly tapering down at wrists/ankles to normal sized hands/feet -non-pitting edema of bilateral LE -two discrete rashes on left leg: one immediately superior to ankle along medial aspect of leg, the other inferior to knee extending from medial to lateral aspect of leg; no drainage noted -no fluctuance or abnormal warmth of either lesion, no palpable aspect of rash, no plaques or raised lesions appreciated -palpable pulses - Neurological Exam awake and alert, moving all extremities spontaneously, following all commands appropriately - Psychiatric Exam Psychiatric exam: Bizarre behavior - Skin Skin Exam: Dry, Intact, Normal Color (except as documented in extremities exam) , Warm Assessment and Plan - Assessment and Plan (Free Text) Assessment: This is a 52 yo F with PMH of HTN, DMII, Asthma/emphysema, hx pyloric stenosis, morbity and anxiety who [place] [facility] complaint of LLE rash above the ankle. Admitted for cellulitis, will need IV abx pending speciation and sensitivities. Plan: 1) LLE celluitis -CT findings consistent with cellutilis but no signs of abscesses needing drainage or any necrotizing signs -Still no leukocytosis, remains afebrile, no pain at site like prior cellulitis presentation but reported pain overnight, site is pruritic -Lower extremity Duplex ordered, advised patient that it is important to get this test done as she was refusing yesterday -Procal negative, blood and wound cultures negative at 24 hours, continue to monitor -ID consulted, appreciate all recs; started on teflaro and antifungal cream, if no improvement then may require skin scrapings for ARIK prep -no morphine or dilaudid for pain control due to reported anaphylatic rxn to morphine/dilaudid/lidocaine, reports home oxycodone use so started on percocet for pain prn -PT ordered for deconditioning 2) Aggressive and Bizarre behavior -Patient was having fluctuates between flattering and complaining, aggressive and inappropriate behavior in front of staff and other patients -Borderline personality disorder? -Psych consulted, appreciate all recs 3) DM -Lispro-ISS Med, fingersticks ACHS -Serum glucose 335 today -Will check HGA1C 4) Hx HTN -continue home Losartan, Lasix, Diltiazem 5) Chronic back pain -Zanaflex discontinued, patient states she does not take this medication 6) Anxiety -continue home klonopin; if attempts to hide again and is non-compliant with taking, will d/c -has service dog with her 7) GERD -Reports NO anaphylaxis on omeprazole or pepcid, -Continue protonix 40mg BID 8) Cough/Sore throat -Patient states that she does not take Lisinopril 2/2 to cough -This medication was discontinued -Added tessalon pearls for cough and cepacol spray for sore throat Dispo: Med/surg, on IV teflaro for cellulitis, pending Psych eval for abnormal/ bizarre behavior FEN: Heart-healthy consistent carb vegetarian, NS 100cc/hr Access: Peripheral IV Consults: ID, Psych Ppx: protonix for GI, Heparin SC for DVT Patient seen, reviewed, and discussed with attending, Dr. Lora. <Walker Martinez - Last Filed: 07/04/17 14:06> Objective - Vital Signs/Intake and Output Vital Signs (last 24 hours): Temp Pulse Resp BP Pulse Ox 97.4 F L 76 20 146/81 95 07/04/17 06:00 07/04/17 10:26 07/04/17 06:00 07/04/17 10:26 07/04/17 06:00 Intake and Output: 07/04/17 07/04/17 06:59 18:59 Intake Total 540 Balance 540 - Medications Medications: Current Medications Acetaminophen (Tylenol 325mg Tab) 650 mg PO Q6H PRN PRN Reason: Fever >100.4 F Al Hydrox/Mg Hydrox/Simethicone (Maalox Plus 30 Ml) 30 ml PO DAILY PRN PRN Reason: Indigestion / Heartburn Albuterol Sulfate (Albuterol 0.083% Inhal Solange (2.5 Mg/3 Ml) Ud) 2.5 mg IH [id number] PRN PRN Reason: Shortness of Breath Last Admin: 07/04/17 08:51 Dose: 2.5 mg Atorvastatin Calcium (Lipitor) 10 mg PO HS [facility] Benzocaine/Menthol (Cepacol Sore Throat) 1 peng MT Q2H PRN PRN Reason: Sore Throat Benzonatate (Tessalon Perles) 100 mg PO TID PRN PRN Reason: Cough Clonazepam (Klonopin) 1 mg PO TID [facility] PRN Reason: Protocol Last Admin: 07/04/17 13:51 Dose: Not Given Diltiazem HCl (Cardizem Cd) 120 mg PO BID [facility] Last Admin: 07/04/17 10:25 Dose: 120 mg Ergocalciferol (Drisdol 50,000 Intl Units Cap) 1 cap PO MO [facility] Last Admin: 07/03/17 18:30 Dose: Not Given Furosemide (Lasix) 40 mg PO DAILY [facility] Last Admin: 07/04/17 10:26 Dose: 40 mg Heparin Sodium (Porcine) (Heparin) 5,000 units SC Q8 [facility] PRN Reason: Protocol Last Admin: 07/04/17 06:18 Dose: 5,000 units Hydrocortisone (Cortizone 1% Cream) 0 gm TOP BID [facility] Insulin Detemir (Levemir) 24 unit SC HS [facility] Insulin Human Lispro (Humalog Low) 0 units SC ACHS [facility] PRN Reason: Protocol Last Admin: 07/04/17 12:00 Dose: Not Given Insulin Human Lispro (Humalog) 12 units SC AC [facility] Linezolid (Zyvox) 600 mg PO BID [facility] PRN Reason: Protocol Losartan Potassium (Cozaar) 50 mg PO DAILY [facility] Last Admin: 07/04/17 10:26 Dose: 50 mg Nystatin (Mycostatin Oint) 0 gm TOP TID [facility] Last Admin: 07/04/17 10:34 Dose: 1 applic Oxycodone/Acetaminophen (Percocet 5/325 Mg Tab) 1 tab PO Q4H PRN PRN Reason: Pain, moderate (4-7) Stop: 07/05/17 09:05 Last Admin: 07/04/17 10:48 Dose: 1 tab Pantoprazole Sodium (Protonix Ec Tab) 40 mg PO Q12H [facility] Last Admin: 07/04/17 06:19 Dose: 40 mg - Labs Labs: 07/04/17 11:30 07/04/17 11:30 PT 10.8 SECONDS (9.4-12.5) 07/01/17 14:20 INR 0.95 (0.93-1.08) 07/01/17 14:20 APTT 27.8 Seconds (25.1-36.5) 07/01/17 14:20 Attending/Attestation - Attestation I have personally seen and examined this patient.: Yes I have fully participated in the care of the patient.: Yes I have reviewed all pertinent clinical information, including history, physical exam and plan: Yes Notes (Text): 07/04/17 13:58 Medical record note made by the resident after discussion with my direction and input after the patient was personally seen and examined by me. I have reviewed the chart and agree that the record accurately reflects by personal performance of the history, physical exam, data review, and medical decision-making, in the course for the patient. I have also personally directed the plan of care 52 year old female with past medical history of Morbid Obesity, hypertension, diabetes,and anxiety was with LLE erythema/rash. CT scan of leg is negative for any collection or any bony involvement.Patient is afebrile.There is no Leukocytosis.CRP is normal.We will discuss with ID and will switch to oral antibiotics. LE dopplers pending. Endocrine and Psychiatry evaluation is appreciated. We will get Physical therapy evaluation.
[2017-07-03] MEDS: Ceftaroline 600 MG in Sodium Chloride 0.9% 100 ML IVPB SCH ×2 (15:28→16:46)
[2017-07-03] MEDS ORDERED: Ergocalciferol 50,000 Intl Units Cap PO SCH (15:58)
[2017-07-03] MEDS: Insulin Lispro (HUMAlog) HIGH Coverage SC SCH ×2 (17:02→21:37)
[2017-07-03] MEDS: Pantoprazole 40 mg EC Tab PO SCH (18:31)
--- NOTE | 2017-07-03 19:13 | CP.PCM.PN ---
Subjective - Date & Time of Evaluation Date of Evaluation: 07/03/17 Time of Evaluation: 12:05 - Subjective Subjective: Sill with itchiness and rash on the left leg, but less itchy, no fevers, no diarrhea. Objective - Vital Signs/Intake and Output Vital Signs (last 24 hours): Temp Pulse Resp BP Pulse Ox 97.9 F 90 20 137/72 96 07/02/17 14:00 07/02/17 14:00 07/02/17 14:00 07/02/17 14:00 07/02/17 14:00 Intake and Output: 07/03/17 07/03/17 06:59 18:59 Intake Total 720 180 Balance 720 180 - Medications Medications: Current Medications Acetaminophen (Tylenol 325mg Tab) 650 mg PO Q6H PRN PRN Reason: Fever >100.4 F Albuterol Sulfate (Albuterol 0.083% Inhal Solange (2.5 Mg/3 Ml) Ud) 2.5 mg IH [id number] PRN PRN Reason: Shortness of Breath Atorvastatin Calcium (Lipitor) 10 mg PO DAILY [facility] Last Admin: 07/02/17 09:25 Dose: 10 mg Clonazepam (Klonopin) 1 mg PO TID [facility] PRN Reason: Protocol Last Admin: 07/02/17 23:14 Dose: 1 mg Diltiazem HCl (Cardizem Cd) 120 mg PO BID [facility] Last Admin: 07/02/17 17:06 Dose: 120 mg Ergocalciferol (Drisdol 50,000 Intl Units Cap) 1 cap PO MO [facility] Furosemide (Lasix) 40 mg PO DAILY [facility] Last Admin: 07/02/17 09:31 Dose: 40 mg Heparin Sodium (Porcine) (Heparin) 5,000 units SC Q8 [facility] PRN Reason: Protocol Last Admin: 07/03/17 06:26 Dose: Not Given Sodium Chloride (Sodium Chloride 0.9%) 1,000 mls @ 100 mls/hr IV .Q10H [facility] Last Admin: 07/02/17 14:42 Dose: 100 mls/hr Ceftaroline Fosamil 400 mg/ (Sodium Chloride) 100 mls @ 100 mls/hr IVPB 0300, 1500 [facility] PRN Reason: Protocol Last Admin: 07/03/17 02:29 Dose: 100 mls/hr Insulin Human Lispro (Humalog Med) 0 units SC ACHS [facility] PRN Reason: Protocol Last Admin: 07/03/17 08:06 Dose: 1 units Lisinopril (Zestril) 40 mg PO DAILY [facility] Last Admin: 07/02/17 09:33 Dose: 40 mg Nystatin (Mycostatin Oint) 0 gm TOP BID [facility] Last Admin: 07/02/17 17:08 Dose: 1 appl Oxycodone/Acetaminophen (Percocet 5/325 Mg Tab) 1 tab PO Q4H PRN PRN Reason: Pain, moderate (4-7) Stop: 07/05/17 09:05 Last Admin: 07/02/17 23:14 Dose: 1 tab Pantoprazole Sodium (Protonix Inj) 40 mg IVP Q12 [facility] Last Admin: 07/02/17 21:15 Dose: 40 mg Tizanidine HCl (Zanaflex) 2 mg PO AMHS [facility] Last Admin: 07/02/17 22:25 Dose: Not Given - Labs Labs: 07/02/17 07:00 07/02/17 07:00 PT 10.8 SECONDS (9.4-12.5) 07/01/17 14:20 INR 0.95 (0.93-1.08) 07/01/17 14:20 APTT 27.8 Seconds (25.1-36.5) 07/01/17 14:20 - Constitutional Appears: Chronically Ill - Head Exam Head Exam: NORMAL INSPECTION - ENT Exam ENT Exam: Mucous Membranes Moist - Neck Exam Neck Exam: absent: Meningismus - Respiratory Exam Respiratory Exam: Decreased Breath Sounds - Cardiovascular Exam Cardiovascular Exam: +S1, +S2 - GI/Abdominal Exam GI & Abdominal Exam: Soft. absent: Tenderness - Extremities Exam Additional comments: patch-like brownish skin lesions on the anterior left leg Assessment and Plan - Assessment and Plan (Free Text) Plan: Assessment Consider left lower extremity cellulitis on top of venous stasis probably related to obesity, R/O fungal infection on anterior left leg COPD history of pyloric stenosis GERD morbid obesity with BMI 58 fatty liver chronic back pain history of uterine mass S/P appendectomy HTN dyslipidemia Plan continue Teflaro day 2 and also continue antifungal cream; blood cx are negative ; if no improvement, may need skin scrapings for ARIK prep; may also consider topical steroids will continue to monitor clinically
[2017-07-04] MEDS: Oxycodone/Acetaminophen 5/325 mg Tab PO PRN ×5 (00:15→21:24)
[2017-07-04] MEDS: Ceftaroline 600 MG in Sodium Chloride 0.9% 100 ML IVPB SCH (02:03)
--- NOTE | 2017-07-04 03:17 | CON ---
DATE: 07/03/2017 ENDOCRINOLOGY CONSULTATION LOCATION: Room 560. HISTORY OF PRESENT ILLNESS: This is a 52-year-old female with known history of super morbid obesity and concomitant type 2 insulin-requiring diabetes presenting here with lower extremity cellulitis with no apparent relief from outpatient intake of oral antibiotic therapy and is now being referred for diabetic evaluation because of persistent hyperglycemic accelerations despite the high-dose coverage scale with Humalog insulin as given. PAST MEDICAL HISTORY: As mentioned above, history of type 2 insulin-requiring diabetes, currently on NovoLog given as 42 units subcu t.i.d. with meals as ordered. She denies any use of Lantus or Levemir given as basal insulin overnight. History of hypertensive cardiovascular disease and dyslipidemia; history of super morbid obesity as noted; history of a previous spine surgery in the lumbosacral area; she also had a prior stomach polypectomy as noted; history of chronic obstructive lung disease with chronic bronchial asthma and underlying emphysema; she also admits to prior history of pyloric stenosis as noted; moreover, admits to generalized anxiety and depression, currently on anti-anxiolytic medications and psychotropic medications for depression; history of previous admissions for lower extremity cellulitis and neuropathic ulcerations. FAMILY HISTORY: Positive for hypertension and diabetes. SOCIAL HISTORY: Patient has a supportive family. No known substance use. Admits to being bed-bound in the last week or so prior to admission. REVIEW OF SYSTEMS: As mentioned above. Admits to generalized body weakness with dizziness and lightheadedness, progressively worse over the last few days prior to admission. Also admits to increasing hypersomnolence and lethargy with bifrontal headaches and visual blurring, again worse in the last few days prior to admission. No chest pains or palpitations, but admits to progressive shortness of breath, initially on exertion and then at rest with paroxysmal nocturnal dyspnea. Also admits to nausea, dyspepsia and vague upper abdominal pains. Moreover, admits to marked polyuria, nocturia, polydipsia and polyphagia as noted. Also admits to habitual constipation; moreover, admits to lower extremity rashes and swelling with worsening erythema and edema in the last week or so prior to admission. PHYSICAL EXAMINATION: GENERAL: This is a super morbidly obese female in no apparent distress. VITAL SIGNS: Blood pressure of 150/90; pulse of 100 beats per minute, regular; temperature 98; respirations 20; height is 5 feet 3 inches; weight is 330 pounds. HEENT: Head normocephalic. Eyes anicteric with pink conjunctivae. Funduscopy is not possible at this time. Ears, nose and throat otherwise normal. NECK: Supple. Thyroid gland is normal in size. No carotid bruits or any cervical adenopathy. CARDIOPULMONARY: Some adynamic precordium. S1, S2 is rapid and regular. LUNGS: Showed bibasal dullness and scattered rhonchi. ABDOMEN: Obese, soft with positive bowel sounds. There is marked truncal adiposity noted. EXTREMITIES: There is erythema and redness in the distal left lower extremity as noted. Pulses are +2 bilaterally. LABORATORY DATA: Her chemistry showed a BUN of 15, sodium 143, potassium 3.8, chloride 104, CO2 of 25, glucose 205 and creatinine 0.6. Her hemoglobin A1c is 7.9%. The last fasting glucose today was 335 mg/dL. ASSESSMENT: This is a 52-year-old female with uncontrolled and decompensated type 2 insulin-requiring diabetes with a subtherapeutic insulin regimen with concomitant super morbid obesity and associated increased insulin resistance thereof and this will also contribute to the impaired glucose tolerance as noted. There is also clinical and historical evidence of diabetic polyneuropathy and vasculopathy, presenting here with left lower extremity cellulitis. PLAN: Plan of management as discussed with the patient and staff. The imperative need for tighter metabolic control cannot must be overemphasized and we will switch her over to a more physiologic basal and bolus insulin drug combination as ordered. We will modify the coverage scale to a very low-dose algorithm using Humalog insulin to obviate hypoglycemia and detailed orders have been given. We will also add Humalog given as 10 units subcu t.i.d. before meals to start tomorrow morning as ordered. Moreover, we will also add basal insulin with Levemir to be given as 20 units subcu at bedtime daily to start tonight. We will titrate incrementally as indicated to optimize metabolic control. We will obtain serial chemistries and supplement accordingly needed. We will reinforce diet education and dietary instructions especially healthier food choices and weight loss efforts accordingly. We will follow. Zuri Toure MD
--- NOTE | 2017-07-04 03:20 | CON ---
DATE: 07/03/2017 HISTORY OF PRESENT ILLNESS: The patient is a 52-year-old female, not known previous psychiatric history and multiple medical problems. The patient brought herself to the hospital complaining of the cellulitis of the left leg. The patient was admitted on the medical site for that. Psych consult was called because the patient presented to be bizarre and weird. The patient was seen and examined today, discussed with the medical team. The patient presented to be alert and oriented, somewhat expanded affect. The patient has a small dog next to her. The patient reported that this is her therapeutic dog. The patient reported that yesterday she was in pain and that is why she was acting "carolyn character." The patient reported that she was "giving attitude to the medical team." The patient is aware of her irrational behavior. The patient said that she does not feel depressed and she does not feel anxious. The patient denied hearing voices or denied seeing things. During the interview, the patient was making at times inappropriate jokes; for example, when this check writer asked about hallucinations, the patient made a joke that she is talking to someone on the wall. In a few seconds, the patient started to laugh and said that "of course, I do not hear any voices." The patient was advised to keep her jokes for some family or friends for informal situation. Patient verbalized understanding. Meanwhile, going back to the past history, the patient reported one admission to the psychiatric inpatient unit because "relationship problems and I was not eating." The patient reported that she brought herself to the hospital and psychiatric team "refused to accept me, but I insisted because I had no appetite and I was not able to force myself to eat." The patient denied history of suicidal attempt. Denied any substance abuse. Reviewed previous history. The patient was not even consulted by psychiatrist for past 11 years, being under [facility] service. PHYSICAL EXAMINATION: VITAL SIGNS: Seems to be stable. Temperature 98.4, pulse is 90, blood pressure 105/72, respirations 20, oxygen saturation is 98%. MENTAL STATUS: The patient presented to be alert, oriented, pleasant, cooperative at times. The patient presented to be weird and oddly related, but overall the patient is not acutely psychotic. The patient is eccentric, intermittent eye contact. Speech was normal rate. Mood described "I was giving them attitude yesterday, but I am fine today." Affect was reactive, somewhat expanded. Thought process circumstantial and tangential. Thought content, the patient denied any psychotic symptoms. Denied thoughts of harming herself or others. Denied intent or plan. Insight and judgment seems to be fair. Impulses are well controlled. MEDICATIONS: Reviewed. The patient is on antibiotics, benzonatate, Cepacol, albuterol; Klonopin 1 mg three times a day scheduled, but the patient refused; diltiazem, Drisdol, Lasix, heparin, Humalog, Cozaar, nystatin, oxycodone, and Protonix. LABORATORY DATA: Labs reviewed. There are no signs of leukocytosis. Chemistry reviewed. Glucose is 335. Microbiology reviewed. Reports reviewed. Discussed with the medical team. IMPRESSION: Most likely the patient has personality disorder. The patient is not psychotic. The patient is not agitated. The patient is not aggressive. PLAN: Continue current management. Continue current medication. The patient was found to be not in any imminent danger to self or others. Continue benzodiazepines. Make sure that patient has followup appointment with primary care physician, no aggression, no agitation. Should you have any questions, give me a call back. Thank you very much for letting me participate in care of your patient. This check writer will sign off. Lorena Kruse MD
[2017-07-04] MEDS: Pantoprazole 40 mg EC Tab PO SCH ×2 (06:19→17:12)
[2017-07-04] MEDS: Insulin Lispro (humaLOG) LOW Coverage SC SCH ×4 (07:48→21:26)
[2017-07-04] MEDS: Insulin Lispro 1 UNITS/0.01 ML SC SCH ×3 (07:56→17:04)
[2017-07-04] MEDS: Albuterol 0.083% Inhal Sol (2.5 mg/3 mL) UD IH PRN (08:51)
[2017-07-04] MEDS ORDERED: Alum-Mag Hydrox-Simethicone Susp (30 mL) PO PRN ×2 (09:21→20:52)
[2017-07-04] MEDS: diltiaZEM 120 mg/24 Hours CD Cap PO SCH ×2 (10:25→17:03)
[2017-07-04] MEDS: Nystatin 100,000 Units/gm Oint(30 gm) TOP SCH ×3 (10:34→17:13)
[2017-07-04 11:38] LABS: BASO # 0.04 K/mm3 (0.0-2.0); BASO % 0.7 % (0.0-3.0); EOS # 0.2 (0.0-0.7); EOS % 3.7 % (1.5-5.0); GRAN # 3.42 (1.4-6.5); GRAN % 60.4 % (50.0-68.0); HEMOGLOBIN 13.3 g/dL (12.0-16.0); LYMPH # 1.6 (1.2-3.4); LYMPH % 27.6 % (22.0-35.0); MEAN CELL VOLUME 85.4 fl (80.0-105.0); MEAN CORPUSCULAR HEMOGLOBIN 28.9 pg (25.0-35.0); MEAN CORPUSCULAR HGB CONC 33.8 g/dl (31.0-37.0); MEAN PLATELET VOLUME 10.9 fl (7.0-11.0); MONO # 0.4 (0.1-0.6); MONO % 7.6 % (1.0-6.0); RBC 4.6 10^6/uL (3.5-6.1); RED CELL DISTRIBUTION WIDTH 13.8 % (11.5-14.5); WHITE BLOOD COUNT 5.7 10^3/ul (4.5-11.0)
[2017-07-04 12:00] LABS: LDL CHOLESTEROL 54 mg/dL (0-129)
[2017-07-04 12:04] LABS: ALB/GLOB RATIO 1.4 (1.1-1.8); ALT/SGPT 41 U/L (7-56); AST/SGOT 24 U/L (14-36); BLOOD UREA NITROGEN 14 mg/dL (7-21); CALCIUM 9.2 mg/dL (8.4-10.5); GFR AFRICAN-AMERICAN > 60; GFR NON-AFRICAN AMERICAN > 60; HDL CHOLESTEROL 37 mg/dL (29-60)
[2017-07-04 12:05] LABS: T4 10.8 ug/dL (5.5-11.0)
--- NOTE | 2017-07-04 13:01 | CP.PCM.PN ---
<Lisa Schneider - Last Filed: 07/04/17 13:17> Subjective - Date & Time of Evaluation Date of Evaluation: 07/04/17 Time of Evaluation: 12:59 - Subjective Subjective: Internal Medicine Progress Note: Patient seen and examined at bedside. Per nursing no acute events overnight. Patient states that she is still having itching in the left lower extremity. Also states that she feels nauseous and acid reflux. Patient repeatedly refusing to go to [place]. States that she will go today. Denies headaches, dizziness , cp, sob, abdominal pain, urinary symptoms. Objective - Vital Signs/Intake and Output Vital Signs (last 24 hours): Temp Pulse Resp BP Pulse Ox 97.4 F L 76 20 146/81 95 07/04/17 06:00 07/04/17 10:26 07/04/17 06:00 07/04/17 10:26 07/04/17 06:00 Intake and Output: 07/04/17 07/04/17 06:59 18:59 Intake Total 540 Balance 540 - Medications Medications: Current Medications Acetaminophen (Tylenol 325mg Tab) 650 mg PO Q6H PRN PRN Reason: Fever >100.4 F Al Hydrox/Mg Hydrox/Simethicone (Maalox Plus 30 Ml) 30 ml PO DAILY PRN PRN Reason: Indigestion / Heartburn Albuterol Sulfate (Albuterol 0.083% Inhal Solange (2.5 Mg/3 Ml) Ud) 2.5 mg IH [id number] PRN PRN Reason: Shortness of Breath Last Admin: 07/04/17 08:51 Dose: 2.5 mg Atorvastatin Calcium (Lipitor) 10 mg PO HS [facility] Benzocaine/Menthol (Cepacol Sore Throat) 1 peng MT Q2H PRN PRN Reason: Sore Throat Benzonatate (Tessalon Perles) 100 mg PO TID PRN PRN Reason: Cough Cephalexin Monohydrate (Keflex) 500 mg PO Q6 [facility] PRN Reason: Protocol Clonazepam (Klonopin) 1 mg PO TID [facility] PRN Reason: Protocol Last Admin: 07/04/17 10:37 Dose: Not Given Diltiazem HCl (Cardizem Cd) 120 mg PO BID [facility] Last Admin: 07/04/17 10:25 Dose: 120 mg Ergocalciferol (Drisdol 50,000 Intl Units Cap) 1 cap PO MO [facility] Last Admin: 07/03/17 18:30 Dose: Not Given Furosemide (Lasix) 40 mg PO DAILY [facility] Last Admin: 07/04/17 10:26 Dose: 40 mg Heparin Sodium (Porcine) (Heparin) 5,000 units SC Q8 [facility] PRN Reason: Protocol Last Admin: 07/04/17 06:18 Dose: 5,000 units Hydrocortisone (Cortizone 1% Cream) 0 gm TOP BID [facility] Insulin Detemir (Levemir) 20 unit SC HS [facility] Insulin Human Lispro (Humalog Low) 0 units SC ACHS [facility] PRN Reason: Protocol Last Admin: 07/04/17 07:48 Dose: Not Given Insulin Human Lispro (Humalog) 10 units SC AC [facility] Last Admin: 07/04/17 12:12 Dose: 10 units Losartan Potassium (Cozaar) 50 mg PO DAILY [facility] Last Admin: 07/04/17 10:26 Dose: 50 mg Nystatin (Mycostatin Oint) 0 gm TOP TID [facility] Last Admin: 07/04/17 10:34 Dose: 1 applic Oxycodone/Acetaminophen (Percocet 5/325 Mg Tab) 1 tab PO Q4H PRN PRN Reason: Pain, moderate (4-7) Stop: 07/05/17 09:05 Last Admin: 07/04/17 10:48 Dose: 1 tab Pantoprazole Sodium (Protonix Ec Tab) 40 mg PO Q12H [facility] Last Admin: 07/04/17 06:19 Dose: 40 mg - Labs Labs: 07/04/17 11:30 07/04/17 11:30 PT 10.8 SECONDS (9.4-12.5) 07/01/17 14:20 INR 0.95 (0.93-1.08) 07/01/17 14:20 APTT 27.8 Seconds (25.1-36.5) 07/01/17 14:20 - Additional Findings Additional findings: - Constitutional Appears: Non-toxic, No Acute Distress, Unkempt, Other (mordibly obese, severe trunkal obesity) - Head Exam Head Exam: ATRAUMATIC, NORMAL INSPECTION, NORMOCEPHALIC - Eye Exam Eye Exam: EOMI, Normal appearance. absent: Conjunctival injection, Scleral icterus Pupil Exam: absent: Irregular, Unequal - ENT Exam ENT Exam: Mucous Membranes Moist, Bull-neck - Neck Exam Neck exam: Positive for: Normal Inspection - Respiratory Exam Respiratory Exam: Decreased Breath Sounds, Clear to Auscultation Bilateral, NORMAL BREATHING PATTERN. - Cardiovascular Exam Cardiovascular Exam: REGULAR RHYTHM, RRR, +S1, +S2. - GI/Abdominal Exam GI & Abdominal Exam: Normal Bowel Sounds, Soft. - Extremities Exam -all extremities with severe focal obesity, enlarged extremities abruptly tapering down at wrists/ankles to normal sized hands/feet -non-pitting edema of bilateral LE -two discrete rashes on left leg: one immediately superior to ankle along medial aspect of leg, the other inferior to knee extending from medial to lateral aspect of leg; no drainage noted -no fluctuance or abnormal warmth of either lesion, no palpable aspect of rash, no plaques or raised lesions appreciated -palpable pulses - Neurological Exam awake and alert, moving all extremities spontaneously, following all commands appropriately - Psychiatric Exam Psychiatric exam: Bizarre behavior - Skin Skin Exam: Dry, Intact, Normal Color (except as documented in extremities exam) , Warm Assessment and Plan - Assessment and Plan (Free Text) Assessment: This is a 52 yo F with PMH of HTN, DMII, Asthma/emphysema, hx pyloric stenosis, morbity and anxiety who presents to [facility] with complaint of LLE rash above the ankle. Admitted for cellulitis, will need IV abx pending speciation and sensitivities. Plan: 1) LLE celluitis -CT findings consistent with cellutilis but no signs of abscesses needing drainage or any necrotizing signs -Still no leukocytosis, remains afebrile, no pain at site like prior cellulitis presentation but reported pain overnight, site is pruritic -Lower extremity Duplex ordered, patient has been refusing to go; states that she will go today -Procal negative, blood and wound cultures negative, continue to monitor -ID consulted, appreciate all recs; started on teflaro and antifungal cream, if no improvement then may require skin scrapings for ARIK prep -PT ordered for deconditioning, will need recommendations for disposition -Per ID, will start on PO Zyvox 600mg BID for total of 7 days -Added hydrocortisone cream 2) Aggressive and Bizarre behavior -Patient was having fluctuates between flattering and complaining, aggressive and inappropriate behavior in front of staff and other patients -Borderline personality disorder? -Psych consulted, appreciate all recs 3) DM -Lispro-ISS Med, fingersticks ACHS -HGA1C 7.9 -Started on Levemir 20 units HS and Humalog 10 units TID -Endocrine on consult, help appreciated 4) Hx HTN -Continue home Losartan, Lasix, Diltiazem 5) Chronic back pain -Zanaflex discontinued, patient states she does not take this medication 6) Anxiety -continue home klonopin -has service dog with her 7) GERD -Reports NO anaphylaxis on omeprazole or pepcid, -Continue protonix 40mg BID -Added Maalox prn -Advised patient that she needs to be out of bed to chair as she is constantly laying in bed 8) Cough/Sore throat -Patient states that she does not take Lisinopril 2/2 to cough -This medication was discontinued -Tessalon pearls for cough and cepacol spray for sore throat prn 9) History of Hyperlipidemia -Triglycerides 449 -Lipitor 10mg PO HS Dispo: Med/surg, on Zyvox, hydrocortisone, nystatin for cellulitis, pending PT eval and lower extremity dopplers FEN: Heart-healthy consistent carb vegetarian, Access: Peripheral IV Consults: ID, Psych Ppx: protonix for GI, Heparin SC for DVT Plan discussed with Dr Martinez <Walker Martinez - Last Filed: 07/04/17 14:08> Objective - Vital Signs/Intake and Output Vital Signs (last 24 hours): Temp Pulse Resp BP Pulse Ox 97.4 F L 76 20 146/81 95 07/04/17 06:00 07/04/17 10:26 07/04/17 06:00 07/04/17 10:26 07/04/17 06:00 Intake and Output: 07/04/17 07/04/17 06:59 18:59 Intake Total 540 Balance 540 - Medications Medications: Current Medications Acetaminophen (Tylenol 325mg Tab) 650 mg PO Q6H PRN PRN Reason: Fever >100.4 F Al Hydrox/Mg Hydrox/Simethicone (Maalox Plus 30 Ml) 30 ml PO DAILY PRN PRN Reason: Indigestion / Heartburn Albuterol Sulfate (Albuterol 0.083% Inhal Solange (2.5 Mg/3 Ml) Ud) 2.5 mg IH [id number] PRN PRN Reason: Shortness of Breath Last Admin: 07/04/17 08:51 Dose: 2.5 mg Atorvastatin Calcium (Lipitor) 10 mg PO HS [facility] Benzocaine/Menthol (Cepacol Sore Throat) 1 peng MT Q2H PRN PRN Reason: Sore Throat Benzonatate (Tessalon Perles) 100 mg PO TID PRN PRN Reason: Cough Clonazepam (Klonopin) 1 mg PO TID [facility] PRN Reason: Protocol Last Admin: 07/04/17 13:51 Dose: Not Given Diltiazem HCl (Cardizem Cd) 120 mg PO BID [facility] Last Admin: 07/04/17 10:25 Dose: 120 mg Ergocalciferol (Drisdol 50,000 Intl Units Cap) 1 cap PO MO [facility] Last Admin: 07/03/17 18:30 Dose: Not Given Furosemide (Lasix) 40 mg PO DAILY [facility] Last Admin: 07/04/17 10:26 Dose: 40 mg Heparin Sodium (Porcine) (Heparin) 5,000 units SC Q8 [facility] PRN Reason: Protocol Last Admin: 07/04/17 13:57 Dose: 5,000 units Hydrocortisone (Cortizone 1% Cream) 0 gm TOP BID [facility] Insulin Detemir (Levemir) 24 unit SC HS [facility] Insulin Human Lispro (Humalog Low) 0 units SC ACHS [facility] PRN Reason: Protocol Last Admin: 07/04/17 12:00 Dose: Not Given Insulin Human Lispro (Humalog) 12 units SC AC [facility] Linezolid (Zyvox) 600 mg PO BID [facility] PRN Reason: Protocol Losartan Potassium (Cozaar) 50 mg PO DAILY [facility] Last Admin: 07/04/17 10:26 Dose: 50 mg Nystatin (Mycostatin Oint) 0 gm TOP TID [facility] Last Admin: 07/04/17 10:34 Dose: 1 applic Oxycodone/Acetaminophen (Percocet 5/325 Mg Tab) 1 tab PO Q4H PRN PRN Reason: Pain, moderate (4-7) Stop: 07/05/17 09:05 Last Admin: 07/04/17 10:48 Dose: 1 tab Pantoprazole Sodium (Protonix Ec Tab) 40 mg PO Q12H [facility] Last Admin: 07/04/17 06:19 Dose: 40 mg - Labs Labs: 05/01/18 11:30 07/04/17 11:30 PT 10.8 SECONDS (9.4-12.5) 07/01/17 14:20 INR 0.95 (0.93-1.08) 07/01/17 14:20 APTT 27.8 Seconds (25.1-36.5) 07/01/17 14:20 Attending/Attestation - Attestation I have personally seen and examined this patient.: Yes I have fully participated in the care of the patient.: Yes I have reviewed all pertinent clinical information, including history, physical exam and plan: Yes Notes (Text): 07/04/17 14:07 Medical record note made by the resident after discussion with my direction and input after the patient was personally seen and examined by me. I have reviewed the chart and agree that the record accurately reflects by personal performance of the history, physical exam, data review, and medical decision-making, in the course for the patient. I have also personally directed the plan of care
--- NOTE | 2017-07-04 14:10 | PN ---
DATE: 07/04/2017 ENDOCRINOLOGY FOLLOWUP NOTE LOCATION: In room 560. SUBJECTIVE: This is a 52-year-old female with recent uncontrolled type 2 insulin-requiring diabetes, presenting here with left leg cellulitis and now undergoing IV antibiotic management and local debridement and is being followed closely now also for metabolic management. Her glycemic levels are fluctuating, but improved and the latest glucose values have ranged from 195-249 mg/dL. The chemistries today showed a BUN of 14, sodium 134, potassium 3.8, chloride 103, CO2 of 21, glucose 307 and creatinine 0.6. Her T4 is 10.8 with a TSH of 2.68. Her cholesterol level is 143 with triglycerides of 449. ASSESSMENT: This is a 52-year-old female with uncontrolled and decompensated type 2 insulin-requiring diabetes, presenting here with marked hyperglycemic accelerations related to a subtherapeutic insulin regimen with concomitant left foot cellulitis with underlying super morbid obesity contributing to the increased insulin resistance thereof. PLAN OF MANAGEMENT: As discussed with the patient and staff, we will continue the current insulin coverage scale using Humalog insulin as ordered. We will modify her basal and bolus insulin regimen and increase the Humalog to 12 units subcu t.i.d. before meals to start at dinnertime today as ordered. We will also increase and titrate her basal insulin with Levemir to be increased to 24 units subcu at bedtime daily to start tonight. We will obtain serial chemistries and supplement accordingly as needed. We will follow and advise accordingly. Zuri Toure MD
[2017-07-04] MEDS: Hydrocortisone 1% Cream (30 GM) TOP SCH ×2 (14:30→17:13)
--- NOTE | 2017-07-04 16:09 | CP.PCM.PN ---
Subjective - Date & Time of Evaluation Date of Evaluation: 07/04/17 Time of Evaluation: 11:50 - Subjective Subjective: A little less pain on the legs, no fevers, not in distress, no diarrhea. Less itchiness on the legs. Objective - Vital Signs/Intake and Output Vital Signs (last 24 hours): Temp Pulse Resp BP Pulse Ox 97.4 F L 87 20 133/75 95 07/04/17 06:00 07/04/17 06:00 07/04/17 06:00 07/04/17 06:00 07/04/17 06:00 Intake and Output: 07/04/17 07/04/17 06:59 18:59 Intake Total 540 Balance 540 - Medications Medications: Current Medications Acetaminophen (Tylenol 325mg Tab) 650 mg PO Q6H PRN PRN Reason: Fever >100.4 F Al Hydrox/Mg Hydrox/Simethicone (Maalox Plus 30 Ml) 30 ml PO DAILY PRN PRN Reason: Indigestion / Heartburn Albuterol Sulfate (Albuterol 0.083% Inhal Solange (2.5 Mg/3 Ml) Ud) 2.5 mg IH [id number] PRN PRN Reason: Shortness of Breath Last Admin: 07/04/17 08:51 Dose: 2.5 mg Atorvastatin Calcium (Lipitor) 10 mg PO HS [facility] Benzocaine/Menthol (Cepacol Sore Throat) 1 peng MT Q2H PRN PRN Reason: Sore Throat Benzonatate (Tessalon Perles) 100 mg PO TID PRN PRN Reason: Cough Clonazepam (Klonopin) 1 mg PO TID [facility] PRN Reason: Protocol Last Admin: 07/03/17 19:44 Dose: 1 mg Diltiazem HCl (Cardizem Cd) 120 mg PO BID [facility] Last Admin: 07/03/17 18:31 Dose: 120 mg Ergocalciferol (Drisdol 50,000 Intl Units Cap) 1 cap PO MO [facility] Last Admin: 07/03/17 18:30 Dose: Not Given Furosemide (Lasix) 40 mg PO DAILY [facility] Last Admin: 07/03/17 10:25 Dose: 40 mg Heparin Sodium (Porcine) (Heparin) 5,000 units SC Q8 [facility] PRN Reason: Protocol Last Admin: 07/04/17 06:18 Dose: 5,000 units Ceftaroline Fosamil 600 mg/ (Sodium Chloride) 100 mls @ 100 mls/hr IVPB 0300, 1500 [facility] PRN Reason: Protocol Last Admin: 07/04/17 02:03 Dose: 100 mls/hr Insulin Detemir (Levemir) 20 unit SC HS [facility] Insulin Human Lispro (Humalog Low) 0 units SC ACHS [facility] PRN Reason: Protocol Last Admin: 07/04/17 07:48 Dose: Not Given Insulin Human Lispro (Humalog) 10 units SC AC [facility] Last Admin: 07/04/17 07:56 Dose: 10 units Losartan Potassium (Cozaar) 50 mg PO DAILY [facility] Nystatin (Mycostatin Oint) 0 gm TOP TID [facility] Oxycodone/Acetaminophen (Percocet 5/325 Mg Tab) 1 tab PO Q4H PRN PRN Reason: Pain, moderate (4-7) Stop: 07/05/17 09:05 Last Admin: 07/04/17 06:18 Dose: 1 tab Pantoprazole Sodium (Protonix Ec Tab) 40 mg PO Q12H [facility] Last Admin: 07/04/17 06:19 Dose: 40 mg - Labs Labs: 07/03/17 08:40 07/03/17 10:00 PT 10.8 SECONDS (9.4-12.5) 07/01/17 14:20 INR 0.95 (0.93-1.08) 07/01/17 14:20 APTT 27.8 Seconds (25.1-36.5) 07/01/17 14:20 - Constitutional Appears: Chronically Ill - Head Exam Head Exam: NORMAL INSPECTION - ENT Exam ENT Exam: Mucous Membranes Moist - Neck Exam Neck Exam: absent: Meningismus - Respiratory Exam Respiratory Exam: Decreased Breath Sounds - Cardiovascular Exam Cardiovascular Exam: +S1, +S2 - GI/Abdominal Exam GI & Abdominal Exam: Soft. absent: Tenderness - Extremities Exam Additional comments: left leg with two dark patches, non-tender Assessment and Plan - Assessment and Plan (Free Text) Plan: Assessment Consider left lower extremity cellulitis on top of venous stasis probably related to obesity, R/O fungal infection on anterior left leg COPD history of pyloric stenosis GERD morbid obesity with BMI 58 fatty liver chronic back pain history of uterine mass S/P appendectomy HTN dyslipidemia Plan continue Teflaro day 3 and also continue antifungal cream; blood cx are negative ; if no improvement, may need skin scrapings for ARIK prep; continue topical steroids as well would recommend follow up with PMD in one week and if lesions are still present , should get skin biopsy will continue to monitor clinically while the patient is in the hospital
--- NOTE | 2017-07-04 16:54 | US ---
HISTORY: Leg pain and swelling. Evaluate for DVT PHYSICIAN(S): Scotty Orozco MD. TECHNIQUE: Duplex sonography and color-flow Doppler with graded compression were used to evaluate the deep venous systems of both lower extremities. The exam is very limited by body habitus and edema. FINDINGS: The visualized deep venous systems of both lower extremities are sonographically normal and compressible. Normal wave forms and augmentation are seen. There is no sonographic evidence for deep venous thrombosis in the visualized segments of both lower extremities. There is a complex 2.0 x 4.1 cm fluid collection in the right popliteal fossa, consistent with a Last's cyst. IMPRESSION: No sonographic evidence for deep venous thrombosis in the visualized segments of both lower extremities. Very limited study.
[2017-07-04] MEDS: Insulin Detemir 100 units/ml Vial (Levemir) SC SCH (21:25)
[2017-07-04] MEDS ORDERED: Insulin Detemir 100 units/ml Vial (Levemir) SC SCH (22:00)
[2017-07-05] MEDS: Oxycodone/Acetaminophen 5/325 mg Tab PO PRN ×4 (03:28→20:25)
[2017-07-05] MEDS: Pantoprazole 40 mg EC Tab PO SCH ×3 (07:07→17:20)
[2017-07-05 07:28] LABS: BASO # 0.04 K/mm3 (0.0-2.0); BASO % 0.7 % (0.0-3.0); EOS # 0.3 (0.0-0.7); EOS % 4.6 % (1.5-5.0); GRAN # 3.19 (1.4-6.5); GRAN % 55.9 % (50.0-68.0); HEMOGLOBIN 12.5 g/dL (12.0-16.0); LYMPH # 1.8 (1.2-3.4); LYMPH % 30.7 % (22.0-35.0); MEAN CELL VOLUME 85.5 fl (80.0-105.0); MEAN CORPUSCULAR HEMOGLOBIN 28.8 pg (25.0-35.0); MEAN CORPUSCULAR HGB CONC 33.7 g/dl (31.0-37.0); MEAN PLATELET VOLUME 10.5 fl (7.0-11.0); MONO # 0.5 (0.1-0.6); MONO % 8.1 % (1.0-6.0); RBC 4.34 10^6/uL (3.5-6.1); RED CELL DISTRIBUTION WIDTH 13.7 % (11.5-14.5); WHITE BLOOD COUNT 5.7 10^3/ul (4.5-11.0)
[2017-07-05 08:10] LABS: ALB/GLOB RATIO 1.5 (1.1-1.8); ALBUMIN 3.5 g/dL (3.0-4.8); ALT/SGPT 40 U/L (7-56); AST/SGOT 26 U/L (14-36); BLOOD UREA NITROGEN 14 mg/dL (7-21); CALCIUM 9.1 mg/dL (8.4-10.5); GFR AFRICAN-AMERICAN > 60; GFR NON-AFRICAN AMERICAN > 60
[2017-07-05] MEDS: Insulin Lispro 1 UNITS/0.01 ML SC SCH ×3 (08:20→17:12)
[2017-07-05] MEDS: Insulin Lispro (humaLOG) LOW Coverage SC SCH ×4 (10:19→22:19)
[2017-07-05] MEDS: Nystatin 100,000 Units/gm Oint(30 gm) TOP SCH ×3 (10:19→20:16)
[2017-07-05] MEDS: diltiaZEM 120 mg/24 Hours CD Cap PO SCH ×2 (10:19→17:13)
--- NOTE | 2017-07-05 15:23 | CP.PCM.PN ---
<Lisa Schneider - Last Filed: 07/05/17 15:29> Subjective - Date & Time of Evaluation Date of Evaluation: 07/05/17 Time of Evaluation: 15:22 - Subjective Subjective: Internal Medicine Progress Note: Patient seen and examined at bedside. Per nursing no acute events overnight. Patient is doing well, PT recommending [facility] for disposition. Denies headaches, dizziness, cp, palpitations, sob, abdominal pain, urinary symptoms. Objective - Vital Signs/Intake and Output Vital Signs (last 24 hours): Temp Pulse Resp BP Pulse Ox 97.5 F L 88 20 142/96 H 97 07/05/17 06:00 07/05/17 10:19 07/05/17 06:00 07/05/17 10:19 07/05/17 06:00 Intake and Output: 07/05/17 07/05/17 06:59 18:59 Intake Total 1020 Balance 1020 - Medications Medications: Current Medications Acetaminophen (Tylenol 325mg Tab) 650 mg PO Q6H PRN PRN Reason: Fever >100.4 F Last Admin: 07/04/17 20:11 Dose: 650 mg Al Hydrox/Mg Hydrox/Simethicone (Maalox Plus 30 Ml) 30 ml PO DAILY PRN PRN Reason: Indigestion / Heartburn Last Admin: 07/04/17 21:23 Dose: 30 ml Albuterol Sulfate (Albuterol 0.083% Inhal Solange (2.5 Mg/3 Ml) Ud) 2.5 mg IH [id number] PRN PRN Reason: Shortness of Breath Last Admin: 07/04/17 08:51 Dose: 2.5 mg Atorvastatin Calcium (Lipitor) 10 mg PO HS [facility] Last Admin: 07/04/17 21:24 Dose: 10 mg Benzocaine/Menthol (Cepacol Sore Throat) 1 peng MT Q2H PRN PRN Reason: Sore Throat Benzonatate (Tessalon Perles) 100 mg PO TID PRN PRN Reason: Cough Clonazepam (Klonopin) 1 mg PO TID [facility] PRN Reason: Protocol Last Admin: 07/05/17 10:29 Dose: Not Given Diltiazem HCl (Cardizem Cd) 120 mg PO BID [facility] Last Admin: 07/05/17 10:19 Dose: 120 mg Ergocalciferol (Drisdol 50,000 Intl Units Cap) 1 cap PO MO [facility] Last Admin: 07/03/17 18:30 Dose: Not Given Furosemide (Lasix) 40 mg PO DAILY [facility] Last Admin: 07/05/17 10:18 Dose: 40 mg Heparin Sodium (Porcine) (Heparin) 5,000 units SC Q8 [facility] PRN Reason: Protocol Last Admin: 07/05/17 07:07 Dose: Not Given Hydrocortisone (Cortizone 1% Cream) 0 gm TOP BID [facility] Last Admin: 07/04/17 17:13 Dose: 1 applic Insulin Detemir (Levemir) 24 unit SC HS [facility] Last Admin: 07/04/17 21:25 Dose: 24 unit Insulin Human Lispro (Humalog Low) 0 units SC ACHS [facility] PRN Reason: Protocol Last Admin: 07/05/17 12:10 Dose: Not Given Insulin Human Lispro (Humalog) 14 units SC AC [facility] Linezolid (Zyvox) 600 mg PO BID [facility] PRN Reason: Protocol Last Admin: 07/05/17 10:18 Dose: 600 mg Losartan Potassium (Cozaar) 50 mg PO DAILY [facility] Last Admin: 07/05/17 10:18 Dose: 50 mg Nystatin (Mycostatin Oint) 0 gm TOP TID [facility] Last Admin: 07/05/17 10:19 Dose: 1 applic Oxycodone/Acetaminophen (Percocet 5/325 Mg Tab) 1 tab PO Q4H PRN PRN Reason: Pain, moderate (4-7) Stop: 07/08/17 15:00 Last Admin: 07/05/17 15:13 Dose: 1 tab Pantoprazole Sodium (Protonix Ec Tab) 40 mg PO Q12H [facility] Last Admin: 07/05/17 10:34 Dose: 40 mg - Labs Labs: 07/05/17 07:00 07/05/17 07:00 PT 10.8 SECONDS (9.4-12.5) 07/01/17 14:20 INR 0.95 (0.93-1.08) 07/01/17 14:20 APTT 27.8 Seconds (25.1-36.5) 07/01/17 14:20 - Additional Findings Additional findings: - Constitutional Appears: Non-toxic, No Acute Distress, Unkempt, Other (mordibly obese, severe trunkal obesity) - Head Exam Head Exam: ATRAUMATIC, NORMAL INSPECTION, NORMOCEPHALIC - Eye Exam Eye Exam: EOMI, Normal appearance. absent: Conjunctival injection, Scleral icterus Pupil Exam: absent: Irregular, Unequal - ENT Exam ENT Exam: Mucous Membranes Moist, Bull-neck - Neck Exam Neck exam: Positive for: Normal Inspection - Respiratory Exam Respiratory Exam: Clear to Auscultation Bilateral, NORMAL BREATHING PATTERN. - Cardiovascular Exam Cardiovascular Exam: REGULAR RHYTHM, RRR, +S1, +S2. - GI/Abdominal Exam GI & Abdominal Exam: Normal Bowel Sounds, Soft. - Extremities Exam -all extremities with severe focal obesity, enlarged extremities abruptly tapering down at wrists/ankles to normal sized hands/feet -non-pitting edema of bilateral LE -two discrete rashes on left leg: one immediately superior to ankle along medial aspect of leg, the other inferior to knee extending from medial to lateral aspect of leg; no drainage noted -no fluctuance or abnormal warmth of either lesion, no palpable aspect of rash, no plaques or raised lesions appreciated -palpable pulses - Neurological Exam awake and alert, moving all extremities spontaneously, following all commands appropriately - Psychiatric Exam Psychiatric exam: Bizarre behavior - Skin Skin Exam: Dry, Intact, Normal Color (except as documented in extremities exam) , Warm Assessment and Plan - Assessment and Plan (Free Text) Assessment: This is a 52 yo F with PMH of HTN, DMII, Asthma/emphysema, hx pyloric stenosis, morbity and anxiety who presents to [facility] [place] with complaint of LLE rash above the ankle. Admitted for cellulitis, will need IV abx pending speciation and sensitivities. Plan: 1) LLE celluitis -CT findings consistent with cellutilis but no signs of abscesses needing drainage or any necrotizing signs -Still no leukocytosis, remains afebrile, no pain at site like prior cellulitis presentation but reported pain overnight, site is pruritic -Lower extremity Duplex negative for DVT -Procal negative, blood and wound cultures negative, continue to monitor -ID consulted, appreciate all recs; started on teflaro and antifungal cream, if no improvement then may require skin scrapings for ARIK prep -PT ordered for deconditioning, recommending [facility] -SW gave patient list of facitilites to chose from -Per ID, on PO Zyvox 600mg BID (day 1) -Added hydrocortisone cream 2) Aggressive and Bizarre behavior -Patient was having fluctuates between flattering and complaining, aggressive and inappropriate behavior in front of staff and other patients -Borderline personality disorder? -Psych consulted, appreciate all recs 3) DM -Lispro-ISS Med, fingersticks ACHS -HGA1C 7.9 -Levemir 24 units HS and Humalog 14 units TID -Endocrine on consult, help appreciated 4) Hx HTN -Continue home Losartan, Lasix, Diltiazem 5) Chronic back pain -Zanaflex discontinued, patient states she does not take this medication 6) Anxiety -continue home klonopin -has service dog with her 7) GERD -Reports NO anaphylaxis on omeprazole or pepcid, -Continue protonix 40mg BID Maalox prn -Advised patient that she needs to be out of bed to chair as she is constantly laying in bed 8) Cough/Sore throat -Patient states that she does not take Lisinopril 2/2 to cough -This medication was discontinued -Tessalon pearls for cough and cepacol spray for sore throat prn 9) History of Hyperlipidemia -Triglycerides 449 -Lipitor 10mg PO HS Dispo: Med/surg, on Zyvox, hydrocortisone, nystatin for cellulitis, PT recommending [facility] for disposition, awaiting placement FEN: Heart-healthy consistent carb vegetarian, Access: Peripheral IV Consults: ID, Psych Ppx: protonix for GI, Heparin SC for DVT Plan discussed with Dr Martinez <Walker Martinez - Last Filed: 07/06/17 16:12> Objective - Vital Signs/Intake and Output Vital Signs (last 24 hours): Temp Pulse Resp BP Pulse Ox 98.8 F 87 20 149/81 95 07/06/17 07:33 07/06/17 11:01 07/06/17 07:33 07/06/17 11:01 07/06/17 07:33 Intake and Output: 07/06/17 07/06/17 06:59 18:59 Intake Total 360 Balance 360 - Medications Medications: Current Medications Acetaminophen (Tylenol 325mg Tab) 650 mg PO Q6H PRN PRN Reason: Fever >100.4 F Last Admin: 07/04/17 20:11 Dose: 650 mg Al Hydrox/Mg Hydrox/Simethicone (Maalox Plus 30 Ml) 30 ml PO DAILY PRN PRN Reason: Indigestion / Heartburn Last Admin: 07/04/17 21:23 Dose: 30 ml Albuterol Sulfate (Albuterol 0.083% Inhal Solange (2.5 Mg/3 Ml) Ud) 2.5 mg IH [id number] PRN PRN Reason: Shortness of Breath Last Admin: 07/06/17 00:46 Dose: 2.5 mg Atorvastatin Calcium (Lipitor) 10 mg PO HS [facility] Last Admin: 07/05/17 22:18 Dose: 10 mg Benzonatate (Tessalon Perles) 100 mg PO TID PRN PRN Reason: Cough Clonazepam (Klonopin) 1 mg PO TID [facility] PRN Reason: Protocol Last Admin: 07/06/17 13:15 Dose: Not Given Diltiazem HCl (Cardizem Cd) 120 mg PO BID [facility] Last Admin: 07/06/17 11:01 Dose: 120 mg Ergocalciferol (Drisdol 50,000 Intl Units Cap) 1 cap PO MO [facility] Last Admin: 07/03/17 18:30 Dose: Not Given Furosemide (Lasix) 40 mg PO DAILY [facility] Last Admin: 07/06/17 11:01 Dose: 40 mg Heparin Sodium (Porcine) (Heparin) 5,000 units SC Q8 [facility] PRN Reason: Protocol Last Admin: 07/06/17 13:14 Dose: 5,000 units Hydrocortisone (Cortizone 1% Cream) 0 gm TOP BID [facility] Last Admin: 07/06/17 11:02 Dose: 1 applic Insulin Detemir (Levemir) 34 unit SC HS [facility] Insulin Human Lispro (Humalog Low) 0 units SC ACHS [facility] PRN Reason: Protocol Last Admin: 07/06/17 11:58 Dose: Not Given Insulin Human Lispro (Humalog) 14 units SC AC [facility] Linezolid (Zyvox) 600 mg PO BID [facility] PRN Reason: Protocol Last Admin: 07/06/17 11:00 Dose: 600 mg Losartan Potassium (Cozaar) 50 mg PO DAILY [facility] Last Admin: 07/06/17 11:01 Dose: 50 mg Nystatin (Mycostatin Oint) 0 gm TOP TID [facility] Last Admin: 07/06/17 13:15 Dose: 1 applic Oxycodone/Acetaminophen (Percocet 5/325 Mg Tab) 1 tab PO Q4H PRN PRN Reason: Pain, moderate (4-7) Stop: 07/08/17 15:00 Last Admin: 07/06/17 11:53 Dose: 1 tab Pantoprazole Sodium (Protonix Ec Tab) 40 mg PO Q12H [facility] Last Admin: 07/06/17 05:42 Dose: 40 mg - Labs Labs: 07/06/17 07:35 07/06/17 07:35 PT 10.8 SECONDS (9.4-12.5) 07/01/17 14:20 INR 0.95 (0.93-1.08) 07/01/17 14:20 APTT 27.8 Seconds (25.1-36.5) 07/01/17 14:20 Attending/Attestation - Attestation I have personally seen and examined this patient.: Yes I have fully participated in the care of the patient.: Yes I have reviewed all pertinent clinical information, including history, physical exam and plan: Yes Notes (Text): 07/06/17 16:10 Medical record note made by the resident after discussion with my direction and input after the patient was personally seen and examined by me. I have reviewed the chart and agree that the record accurately reflects by personal performance of the history, physical exam, data review, and medical decision-making, in the course for the patient. I have also personally directed the plan of care 52 year old female with past medical history of Morbid Obesity, hypertension, diabetes,and anxiety was with LLE erythema/rash. CT scan of leg was negative for any collection or any bony involvement .Patient is afebrile.There is no Leukocytosis.CRP is normal.We will discuss with ID and will switch to oral antibiotics. LE dopplers is negative for DVT. Patient antibiotics will be changed to oral Linezolide. She was evaluated by physical therapy and [facility] is recommended,Case management is working on disposition Management plan was discussed in detail with patient. Education was provided..
[2017-07-05] MEDS: Hydrocortisone 1% Cream (30 GM) TOP SCH ×2 (15:58→20:16)
[2017-07-05] MEDS: Insulin Detemir 100 units/ml Vial (Levemir) SC SCH (22:19)
[2017-07-06] MEDS: Oxycodone/Acetaminophen 5/325 mg Tab PO PRN ×4 (00:12→16:46)
[2017-07-06] MEDS: Albuterol 0.083% Inhal Sol (2.5 mg/3 mL) UD IH PRN (00:46)
[2017-07-06] MEDS ORDERED: guaiFENesin DM 100 mg-10 mg/5 ml UD PO ONE (03:53)
[2017-07-06] MEDS: Pantoprazole 40 mg EC Tab PO SCH ×2 (05:42→17:44)
--- NOTE | 2017-07-06 07:24 | PN ---
DATE: 07/05/2017 ENDOCRINOLOGY FOLLOWUP NOTE LOCATION: Room 560. SUBJECTIVE: This is a 52-year-old female with recent uncontrolled type 2 insulin-requiring diabetes with underlying super morbid obesity, presenting here with leg cellulitis and is now being followed closely for metabolic management. Her glycemic levels are fluctuating, but improved and the latest glucose levels have ranged from 217 to 237 mg/dL. It was 222 at bedtime last night. Her latest chemistry showed a BUN of 14. Sodium 137, potassium 3.8, chloride 103, CO2 of 23. Glucose 234. Creatinine is 0.6. So at this time, we will modify once we will get her basal and bolus insulin regimen and increase the Humalog to 14 units subcu t.i.d. before meals to start today as ordered. We will also continue her basal insulin given as Levemir of 24 units subcu at bedtime daily as ordered. We will continue the low dose correction scale using Humalog insulin as given. We will obtain serial chemistries and supplement accordingly as needed. We will follow and advise accordingly. Zuri Toure MD
[2017-07-06 07:34] VITALS: TEMP 98.8; O2SAT 95
[2017-07-06 07:45] LABS: BASO # 0.04 K/mm3 (0.0-2.0); BASO % 0.8 % (0.0-3.0); EOS # 0.2 (0.0-0.7); EOS % 4.6 % (1.5-5.0); GRAN # 2.66 (1.4-6.5); GRAN % 50.6 % (50.0-68.0); HEMOGLOBIN 11.8 g/dL (12.0-16.0); LYMPH # 1.9 (1.2-3.4); MEAN CELL VOLUME 85.2 fl (80.0-105.0); MEAN CORPUSCULAR HEMOGLOBIN 28.6 pg (25.0-35.0); MEAN CORPUSCULAR HGB CONC 33.6 g/dl (31.0-37.0); MEAN PLATELET VOLUME 9.1 fl (7.0-11.0); MONO # 0.4 (0.1-0.6); RBC 4.12 10^6/uL (3.5-6.1); RED CELL DISTRIBUTION WIDTH 13.9 % (11.5-14.5); WHITE BLOOD COUNT 5.3 10^3/ul (4.5-11.0)
[2017-07-06] MEDS: Insulin Lispro 1 UNITS/0.01 ML SC SCH (07:54)
[2017-07-06] MEDS: Insulin Lispro (humaLOG) LOW Coverage SC SCH ×3 (07:55→16:54)
[2017-07-06 08:14] LABS: ALB/GLOB RATIO 1.4 (1.1-1.8); ALBUMIN 3.6 g/dL (3.0-4.8); ALT/SGPT 47 U/L (7-56); AST/SGOT 28 U/L (14-36); BLOOD UREA NITROGEN 12 mg/dL (7-21); CALCIUM 8.6 mg/dL (8.4-10.5); GFR AFRICAN-AMERICAN > 60; GFR NON-AFRICAN AMERICAN > 60
[2017-07-06] MEDS ORDERED: Insulin Lispro 1 UNITS/0.01 ML SC SCH ×2 (09:22→16:30)
[2017-07-06] MEDS ORDERED: Insulin Detemir 100 units/ml Vial (Levemir) SC SCH ×2 (09:22→22:00)
[2017-07-06] MEDS: diltiaZEM 120 mg/24 Hours CD Cap PO SCH ×2 (11:01→17:44)
[2017-07-06] MEDS: Hydrocortisone 1% Cream (30 GM) TOP SCH ×2 (11:02→18:16)
[2017-07-06] MEDS: Nystatin 100,000 Units/gm Oint(30 gm) TOP SCH ×3 (11:02→18:17)
--- NOTE | 2017-07-06 15:18 | CP.PCM.DIS ---
Provider - Provider Date of Admission: 07/01/17 15:02 Attending physician: Walker Martinez MD Primary care physician: Era Norton MD Time Spent in preparation of Discharge (in minutes): 35 Hospital Course - Lab Results Lab Results: Micro Results 07/01/17 19:30 Leg - Left Gram Stain - Final 07/01/17 19:30 Leg - Left Wound Culture - Final No growth. Most Recent Lab Values WBC 5.3 10^3/ul (4.5-11.0) 07/06/17 07:35 RBC 4.12 10^6/uL (3.5-6.1) 07/06/17 07:35 Hgb 11.8 g/dL (12.0-16.0) L 07/06/17 07:35 Hct 35.1 % (36.0-48.0) L 07/06/17 07:35 MCV 85.2 fl (80.0-105.0) 07/06/17 07:35 MCH 28.6 pg (25.0-35.0) 07/06/17 07:35 MCHC 33.6 g/dl (31.0-37.0) 07/06/17 07:35 RDW 13.9 % (11.5-14.5) 07/06/17 07:35 Plt Count 197 10^3/uL (120.0-450.0) 07/06/17 07:35 MPV 9.1 fl (7.0-11.0) 07/06/17 07:35 Gran % 50.6 % (50.0-68.0) 07/06/17 07:35 Lymph % (Auto) 37.0 % (22.0-35.0) H 07/06/17 07:35 [place] % (Auto) 7.0 % (1.0-6.0) H 07/06/17 07:35 Eos % (Auto) 4.6 % (1.5-5.0) 07/06/17 07:35 Baso % (Auto) 0.8 % (0.0-3.0) 07/06/17 07:35 Gran # 2.66 (1.4-6.5) 07/06/17 07:35 Lymph # (Auto) 1.9 (1.2-3.4) 07/06/17 07:35 [place] # (Auto) 0.4 (0.1-0.6) 07/06/17 07:35 Eos # (Auto) 0.2 (0.0-0.7) 07/06/17 07:35 Baso # (Auto) 0.04 K/mm3 (0.0-2.0) 07/06/17 07:35 ESR 23 mm/hr (0.0-20.0) H 07/03/17 08:40 PT 10.8 SECONDS (9.4-12.5) 07/01/17 14:20 INR 0.95 (0.93-1.08) 07/01/17 14:20 APTT 27.8 Seconds (25.1-36.5) 07/01/17 14:20 pO2 45 mm/Hg (30-55) 07/01/17 14:20 VBG pH 7.36 (7.32-7.43) 07/01/17 14:20 VBG pCO2 48.0 (40-60) 07/01/17 14:20 VBG HCO3 27.1 mmol/l (21-28) 07/01/17 14:20 VBG Total CO2 28.6 mmol.L (22-28) H 07/01/17 14:20 VBG O2 Sat (Calc) 87.2 % (40-65) H 07/01/17 14:20 VBG Base Excess 1.0 mmol/L (0.0-2.0) 07/01/17 14:20 VBG Potassium 3.7 mmol/L (3.6-5.2) 07/01/17 14:20 Sodium 140.0 mmol/L (132-148) 07/01/17 14:20 Chloride 105.0 mmol/L (98-107) 07/01/17 14:20 Glucose 216 mg/dl (65-105) H 07/01/17 14:20 Lactate 1.9 mmol/L (0.7-2.1) 07/01/17 14:20 FiO2 21.0 % 07/01/17 14:20 Sodium 136 mmol/L (132-148) 07/06/17 07:35 Potassium 3.5 mmol/L (3.6-5.0) L 07/06/17 07:35 Chloride 102 mmol/L (98-107) 07/06/17 07:35 Carbon Dioxide 25 mmol/L (21-33) 07/06/17 07:35 Anion Gap 12 (10-20) 07/06/17 07:35 BUN 12 mg/dL (7-21) 07/06/17 07:35 Creatinine 0.6 mg/dl (0.7-1.2) L 07/06/17 07:35 Est GFR ( Amer) > 60 07/06/17 07:35 Est GFR (Non-Af Amer) > 60 07/06/17 07:35 POC Glucose (mg/dL) 215 mg/dL (65-110) H 07/06/17 11:13 Random Glucose 258 mg/dL (70-110) H 07/06/17 07:35 Hemoglobin A1c 7.9 % (4.2-6.5) H 07/03/17 08:40 Calcium 8.6 mg/dL (8.4-10.5) 07/06/17 07:35 Phosphorus 3.0 mg/dL (2.5-4.5) 07/06/17 07:35 Magnesium 1.7 mg/dL (1.7-2.2) 07/06/17 07:35 Total Bilirubin 0.4 mg/dL (0.2-1.3) 07/06/17 07:35 AST 28 U/L (14-36) 07/06/17 07:35 ALT 47 U/L (7-56) 07/06/17 07:35 Alkaline Phosphatase 55 U/L (38-126) 07/06/17 07:35 C-Reactive Protein 9.50 mg/L (0.0-9.9) 07/02/17 07:00 Total Protein 6.1 g/dL (5.8-8.3) 07/06/17 07:35 Albumin 3.6 g/dL (3.0-4.8) 07/06/17 07:35 Globulin 2.5 gm/dL 07/06/17 07:35 Albumin/Globulin Ratio 1.4 (1.1-1.8) 07/06/17 07:35 Triglycerides 449 mg/dL (35-160) H 07/04/17 11:30 Cholesterol 143 mg/dL (130-200) 07/04/17 11:30 LDL Cholesterol Direct 54 mg/dL (0-129) 07/04/17 11:30 HDL Cholesterol 37 mg/dL (29-60) 07/04/17 11:30 Procalcitonin < 0.05 NG/ML (0.19-0.49) L 07/01/17 18:10 Thyroxine (T4) 10.8 ug/dL (5.5-11.0) 07/04/17 11:30 TSH 3rd Generation 2.68 mIU/mL (0.46-4.68) 07/04/17 11:30 Cortisol AM Sample 9.8 ug/dL (4.46-22.7) 07/04/17 11:30 ACTH 16 pg/mL (6-50) 07/04/17 11:30 Venous Blood Potassium 3.7 mmol/L (3.6-5.2) 07/01/17 14:20 - Hospital Course Hospital Course: History of Present Illness: This is a 52 yo F with PMH of HTN, DMII, Asthma/emphysema, hx pyloric stenosis, morbity and anxiety who [place] [facility] [place] complaint of LLE rash above the ankle. Reports the rash first appeared yesterday, intensely pruitic, not alleviated by Neosporin or PO benadryl use. Reports presentation is dissimilar from prior 2 episodes of cellulitis, in which her foot swelled and the cellulitis travelled up the leg to her abdominal region. As per the ED, initial plan was to discharge pt on PO antibiotics, but on return examination, new lesion below the knee was noticed, overall size of rash/lesion doubled in size, and pt reported to ED that she had failed outpt abx on both prior incidences, so decision was made to admit the patient. She denies pain at the site, fevers, chills, nausea, emesis, diarrhea, dysuria, chest pain, shortness of breath. Of note, patient reports essentially bed bound for the last 5 days, only had a change of clothes today. Also of note, has a service animal with her , which has been allowed to be with her after admission in the past. The animal (a small dog) has white fur that appears dirty and poorly kept, and appears to have a diffuse rash along the posterior aspect of his body, easily appreciated through the dirty portion of the fur. Patient reports that her building drafting officer told her that there was an outbreak of bedbugs in the building , but not in her apartment. All other ROS in 12-system review negative. Hospital Course: Discharge Exam - Additional Findings Additional findings: - Constitutional Appears: Non-toxic, No Acute Distress, Unkempt, Other (mordibly obese, severe trunkal obesity) - Head Exam Head Exam: ATRAUMATIC, NORMAL INSPECTION, NORMOCEPHALIC - Eye Exam Eye Exam: EOMI, Normal appearance. absent: Conjunctival injection, Scleral icterus Pupil Exam: absent: Irregular, Unequal - ENT Exam ENT Exam: Mucous Membranes Moist, Bull-neck - Neck Exam Neck exam: Positive for: Normal Inspection - Respiratory Exam Respiratory Exam: Clear to Auscultation Bilateral, NORMAL BREATHING PATTERN. - Cardiovascular Exam Cardiovascular Exam: REGULAR RHYTHM, RRR, +S1, +S2. - GI/Abdominal Exam GI & Abdominal Exam: Normal Bowel Sounds, Soft. - Extremities Exam -all extremities with severe focal obesity, enlarged extremities abruptly tapering down at wrists/ankles to normal sized hands/feet -non-pitting edema of bilateral LE -two discrete rashes on left leg: one immediately superior to ankle along medial aspect of leg, the other inferior to knee extending from medial to lateral aspect of leg; no drainage noted -no fluctuance or abnormal warmth of either lesion, no palpable aspect of rash, no plaques or raised lesions appreciated -palpable pulses - Neurological Exam awake and alert, moving all extremities spontaneously, following all commands appropriately - Psychiatric Exam Psychiatric exam: Bizarre behavior - Skin Skin Exam: Dry, Intact, Normal Color (except as documented in extremities exam) , Warm Discharge Plan - Discharge Medications Prescriptions: Hydrocortisone 1% Cream [Cortizone 1% Cream] 1 gm TOP BID #1 tube Insulin Detemir [Levemir] 34 unit SC HS #12 ml Insulin Lispro [humALOG] 14 units SC AC #14 ml Linezolid [Zyvox] 600 mg PO BID #12 tab Losartan [Cozaar] 50 mg PO DAILY #30 tab - Follow Up Plan Condition: FAIR Disposition: TRANSF TO SNF Instructions: Cellulitis (ED), Cellulitis (DC), Cellulitis (GEN) Additional Instructions: 1. Patient is clear for discharge to [facility] [place] 2. Continue antibiotics as prescribed, also continue steroid cream and nystatin cream 3. Recommend follow up with PMD in one week and if lesions are still present, should get skin biopsy 4. Please titrate insulin regimen as needed for elevated blood sugars Referrals: Era Hahn MD [Primary Care Provider] -
[2017-07-06 18:22] VITALS: BP 156/99; PULSE 79
--- NOTE | 2017-07-06 19:23 | PN ---
DATE: 07/06/2017 ENDOCRINOLOGY FOLLOWUP NOTE LOCATION: In room 560. SUBJECTIVE: This is a 52-year-old female with recent uncontrolled type 2 insulin-requiring diabetes, who presented here with left leg cellulitis and currently receiving IV antibiotics and also local debridement as noted thereof. Her glycemic fluctuations are improving as noted and today's glucose values have ranged from 204 to 215 and 238 mg/dL. Her latest chemistry showed a BUN of 12. Sodium 136, potassium 3.5, chloride 102, CO2 of 25. Glucose 258. Creatinine 0.8. So at this time, we will modify once again her basal and bolus insulin regimen and increase the Humalog to 14 units subcu t.i.d. before meals to start at dinner time today as ordered. We will also increase her Levemir to 34 units subcu at bedtime daily to start tonight. We will continue the low-dose correction scale using Humalog insulin to obviate hypoglycemia and detailed orders have been given. We will obtain serial chemistries and supplement accordingly as needed. We will follow up. Zuri Toure MD
--- NOTE | 2017-07-07 03:25 | PN ---
DATE: 07/06/2017 SUBJECTIVE: Patient is in bed, in no acute distress, nontoxic. Patient was seen earlier this morning in room 560. PHYSICAL EXAMINATION: VITAL SIGNS: On exam, temperature is 98, blood pressure is 156/90, respiratory rate of 20, heart rate of 87. HEENT: Unremarkable. NECK: Supple. LUNGS: Have decreased breath sounds. HEART: Normal S1, S2. ABDOMEN: Soft, nontender. LABORATORY EXAMINATION: Reveals a white count of 5.3, hemoglobin of 11, platelets of 197. BUN of 12, creatinine of 0.6. C-reactive protein is 9.5. Blood cultures are negative. cultures have no growth. Review of orders reveals the patient is on p.o. linezolid. ASSESSMENT AND PLAN: A 52-year-old female who was seen earlier this morning in room 560, with left lower extremity cellulitis on top of venous stasis and fungal infection, day #4, , now switched to p.o. Zyvox and the patient with chronic obstructive pulmonary disease, pyloric stenosis, gastroesophageal reflux disease, morbid obesity, body mass index of 58, fatty liver, chronic back pain, history of uterine mass, hypertension and dyslipidemia. We will follow with you. Hilton Blank MD
== END 2017-07-06 22:27 | DRG 603 ==
LOC: ED 12:50 → ERH 15:02 → 5RNO 17:18
PROVIDERS: ADMIT Internal Medicine; ATTEND Internal Medicine
PROC: 3E0F7GC Introduction of Other Therapeutic Substance into Respiratory Tract, Via Natural or Artificial Opening (ICD-10-PCS; principal; 2017-07-04)
DX: L03.116 Cellulitis of left lower limb (principal); K31.1 Adult hypertrophic pyloric stenosis; Z68.43 Body mass index [BMI] 50.0-59.9, adult; J43.9 Emphysema, unspecified; E66.01 Morbid (severe) obesity due to excess calories; F41.9 Anxiety disorder, unspecified; I11.9 Hypertensive heart disease without heart failure; E11.65 Type 2 diabetes mellitus with hyperglycemia; E11.42 Type 2 diabetes mellitus with diabetic polyneuropathy; K21.9 Gastro-esophageal reflux disease without esophagitis; L29.9 Pruritus, unspecified; I87.2 Venous insufficiency (chronic) (peripheral); G89.29 Other chronic pain; M54.9 Dorsalgia, unspecified; E78.5 Hyperlipidemia, unspecified; K76.0 Fatty (change of) liver, not elsewhere classified; Z79.4 Long term (current) use of insulin; Z90.49 Acquired absence of other specified parts of digestive tract

== ENCOUNTER 2018-06-20 17:19 | Emergency (ER) | payer MEDICARE, OTHER ==
[2018-06-20 18:09] VITALS: RESP 18; BMI 54.8
--- NOTE | 2018-06-20 18:21 | ED PDOC ---
Arrival/HPI - General Chief Complaint: Lower Extremity Problem/Injury Historian: Patient - History of Present Illness Narrative History of Present Illness (Text): 06/20/18 18:15 53 y/o female, pmh including htn/hld/dm/pyloric stenosis history/extremity edema which she is on the fuorsemide, post menopausal, allergic to hydromorphone/lidocaine/bactrim/pepcid?, c/o left lower leg swelling x 2 days with no fall or trauma. Pt. stated that she has chronic extremity edema, feels left lower leg more swelling, no pain, no itching, no fever or chills, no rash, no night sweat, no other medical or psychological complaints. Past Medical History - Provider Review Nursing Documentation Reviewed: Yes - Infectious Disease Hx of Infectious Diseases: None - Tetanus Immunization Tetanus Immunization: Up to Date - Cardiac Hx Cardiac Disorders: Yes Hx Hypertension: Yes - Pulmonary Hx Respiratory Disorders: Yes Hx Asthma: Yes Hx Bronchitis: Yes Hx Emphysema: Yes - Neurological Hx Neurological Disorder: No - HEENT Hx HEENT Disorder: No - Renal Hx Renal Disorder: No - Endocrine/Metabolic Hx Endocrine Disorders: Yes Hx Diabetes Mellitus Type 2: Yes - Hematological/Oncological Hx Blood Disorders: No - Integumentary Hx Dermatological Disorder: Yes Other/Comment: Multiple cellulitis - Musculoskeletal/Rheumatological Hx Musculoskeletal Disorders: Yes Hx Back Pain: Yes Hx Falls: Yes Hx Unsteady Gait: Yes (CANE) - Gastrointestinal Hx Gastrointestinal Disorders: Yes (impaction, pyloric stenosis) Hx Gastroesophageal Reflux: Yes Hx Liver Failure: (fatty liver) Hx Pancreatitis: Yes - Genitourinary/Gynecological Hx Genitourinary Disorders: Yes (uterine mass) - Psychiatric Hx Psychophysiologic Disorder: Yes Hx Anxiety: Yes Hx Substance Use: No - Surgical History Hx Appendectomy: Yes - Anesthesia Hx Anesthesia: Yes Hx Anesthesia Reactions: No Hx Malignant Hyperthermia: No - Suicidal Assessment Feels Threatened In Home Enviroment: No Family/Social History - Physician Review Nursing Documentation Reviewed: Yes Family/Social History: Unknown Family HX Smoking Status: Never Smoked Hx Alcohol Use: No Hx Substance Use: No Hx Substance Use Treatment: No Allergies/Home Meds Allergies/Adverse Reactions: Allergies hydromorphone Allergy (Verified 06/20/18 18:11) ANAPHYLAXIS lidocaine Allergy (Verified 06/20/18 18:11) ANAPHYLAXIS Sulfa (Sulfonamide Antibiotics) Allergy (Verified 06/20/18 18:11) RASH famotidine Adverse Reaction (Verified 06/20/18 18:11) HEADACHE reports getting "depression" side effect with famotidine, denies anaphylaxis/rash/systemic sx ketorolac tromethamine [From Toradol] Adverse Reaction (Verified 06/20/18 18:11) ANAPHYLAXIS morphine Adverse Reaction (Verified 06/20/18 18:11) ANAPHYLAXIS omeprazole Adverse Reaction (Verified 06/20/18 18:11) HEADACHE reports getting "depression" side effect with omeprazole, denies anaphylaxis/rash/systemic sx Home Medications: Home Meds Medication Instructions Recorded Confirmed Albuterol HFA [Ventolin HFA 90 2 puff IN TID PRN 01/13/17 07/01/17 mcg/actuation (8 g)] Ergocalciferol [Drisdol 50,000 1 cap PO MO 01/13/17 07/01/17 Intl Units Cap] Esomeprazole Magnesium [Nexium] 40 mg PO DAILY 01/13/17 07/01/17 clonazePAM [Klonopin] 1 mg PO TID 01/13/17 07/01/17 diltiaZEM CD [Cardizem CD] 120 mg PO BID 01/13/17 07/01/17 Nystatin [Mycostatin Oint] 100,000 unit TP BID 01/14/17 07/01/17 Review of Systems - Review of Systems Constitutional: absent: Fatigue, Fevers Eyes: absent: Vision Changes ENT: absent: Hearing Changes Respiratory: absent: SOB, Cough Cardiovascular: absent: Chest Pain Gastrointestinal: absent: Abdominal Pain, Diarrhea, Nausea, Vomiting Musculoskeletal: absent: Arthralgias, Back Pain Skin: absent: Rash, Pruritis Neurological: absent: Headache, Dizziness Endocrine: absent: Diaphoresis, Polyuria Psychiatric: absent: Anxiety, Depression, Suicidal Ideation Physical Exam Vital Signs Reviewed: Yes Vital Signs Temp Pulse Resp BP Pulse Ox 06/20/18 18:07 94.6 F L 86 18 186/118 H 98 Temperature: Afebrile Blood Pressure: Hypertensive Pulse: Regular Respiratory Rate: Normal Appearance: Positive for: Well-Appearing, Non-Toxic, Comfortable Pain Distress: None Mental Status: Positive for: Alert and Oriented X 3 - Systems Exam Head: Present: Atraumatic, Normocephalic Pupils: Present: PERRL Extroacular Muscles: Present: EOMI Conjunctiva: Present: Normal Mouth: Present: Moist Mucous Membranes Neck: Present: Normal Range of Motion Respiratory/Chest: Present: Clear to Auscultation, Good Air Exchange. No: Respiratory Distress, Accessory Muscle Use Cardiovascular: Present: Regular Rate and Rhythm, Normal S1, S2. No: Murmurs Abdomen: No: Tenderness, Distention, Peritoneal Signs Back: Present: Normal Inspection Upper Extremity: Present: Normal Inspection. No: Cyanosis, Edema Lower Extremity: Present: Normal Inspection, Other (LLE: no cellulitis or ulcer, no rash, no skin discoloration, no swelling compared to the RLE, FROM without limtiation, sensation intact, motor 5/5, no pedal edema, +DPPT pulses, capillary refill< 2 seconds, neurovascular intact, no rash. ). No: Edema Neurological: Present: GCS=15, CN II-XII Intact, Speech Normal, Motor Func Grossly Intact, Normal Cerebellar Funct, Memory Normal Skin: Present: Warm, Dry, Normal Color. No: Rashes Psychiatric: Present: Alert, Oriented x 3, Normal Insight, Normal Concentration Medical Decision Making ED Course and Treatment: 06/20/18 18:25 -LLE Venuous doppler -Clonidine -Observe and reassess 06/20/18 20:14 -LLE Venuous doppler: as per preliminary report: as per preliminary report, no DVT -Repeated the BP is improved, asymptomatic cardiopulmonary/neurological, will discharge home. -Discharge home with education on follow up with your own pmd within 2 days, return to the ER for any new or worsening signs or symptoms. - RAD Interpretation Radiology Orders: -LLE Venuous doppler: as per preliminary report: as per preliminary report, no DVT Shuttle Inspector: Radiologist Disposition/Present on Arrival - Present on Arrival Any Indicators Present on Arrival: No History of DVT/PE: No History of Uncontrolled Diabetes: No Urinary Catheter: No History of Decub. Ulcer: No History Surgical Site Infection Following: None - Disposition Have Diagnosis and Disposition been Completed?: Yes Diagnosis: General medical exam Disposition: HOME/ ROUTINE Disposition Time: 20:16 Patient Plan: Discharge Condition: GOOD Additional Instructions: -Discharge home with education on follow up with your own pmd within 2 days, return to the ER for any new or worsening signs or symptoms. Referrals: Era Hahn MD [Family Provider] - Follow up with primary Forms: [employer] (Ch[place]an), WORK NOTE
[2018-06-20 20:10] VITALS: BP 124/64; PULSE 79; O2SAT 100
[2018-06-20 20:19] VITALS: TEMP 98.2
--- NOTE | 2018-06-21 09:09 | US ---
PROCEDURE: Left lower extremity venous US HISTORY: Leg pain and swelling. Evaluate for DVT. PHYSICIAN(S): Scotty Orozco MD. TECHNIQUE: Duplex sonography and color-flow Doppler with graded compression were used to evaluate the deep venous system of the left lower extremity. The exam is very limited by body habitus. The lower femoral veins and tibial veins are not adequately seen FINDINGS: The visualized deep venous system of the left lower extremity is sonographically normal and compressible. Normal wave forms and augmentation are seen. There is no sonographic evidence for deep venous thrombosis in the visualized segments of the left lower extremity. IMPRESSION: 1. No sonographic evidence for deep venous thrombosis in the visualized segments of the left lower extremity. 2. Very limited study
== END 2018-06-20 20:37 | disposition home or self-care (01) ==
LOC: ED 17:19
DX: Z04.89 Encounter for examination and observation for other specified reasons (principal); I10 Essential (primary) hypertension; E78.5 Hyperlipidemia, unspecified

== ENCOUNTER 2018-06-23 15:22 | Inpatient (IN) | payer MEDICARE, OTHER | END 2018-06-27 21:41 | disposition home or self-care (01) | LOC: 5RSO 06-24 00:20 → ED 15:22 → ERH 19:30 ==